=== PATIENT | female | born 1975 | race Hispanic/Latino ===

== ENCOUNTER 2016-11-18 05:39 | Emergency (ER) | payer OTHER ==
[~2016-11-18] VITALS: Ht 154.9 cm; Wt 175.4 kg
[~2016-11-18 05:39] MED LIST: DICY20TA33 PO; HYOS0.1218 SL; LAM100 PO; ONDA8TAB10 PO
[2016-11-18 05:49] VITALS: BP 160/85; RESP 20; O2SAT 95
[2016-11-18] MEDS ORDERED: Ondansetron 2 mg/mL 2 mL Inj ONE (07:22)
[2016-11-18 07:45] LABS: Mean Corpuscular Hemoglobin 24.8 pg (27.0-35.0)
--- NOTE | 2016-11-18 08:16 | ED.REPORT ---
HPI-General Illness Date of Service Nov 18, 2016 ED Provider: Aleksandar Toro MD Nursing Notes Stated Complaint: EAR/THROAT PAIN & VOMITING Chief Complaint: ENT & Mouth Nursing Notes Reviewed: Yes ([employer]une, [employer] not reconciled) Allergies: Coded Allergies: No Known Allergies (Verified Allergy, Unknown, 11/18/16) Scheduled Hyoscyamine SL (Hyoscyamine SL) 0.125 Mg Subl 0.125 MG SL QID lamoTRIgine-Expunged Drug, Do Not Renew! (Lamictal-Expunged Drug, Do Not Renew! ) 100 Mg Tablet 300 MG PO DAILY Scheduled PRN Benzonatate (Tessalon Perle) 100 Mg Capsule 100 MG PO TID PRN PRN For Cough Dicyclomine (Bentyl) 20 Mg Tablet 20 MG PO QID PRN PRN cramps Ondansetron ODT (Ondansetron ODT) 8 Mg Tab.rapdis 8 MG PO QID PRN PRN For Nausea General Time Seen by MD: 08:14 Past Medical History Past Medical History Asthma Seizures Hiatal Hernia Reports: Morbid Obesity Past Surgical History Reports: Cholecystectomy, Inguinal hernia repair Smoking History Former Smoker Social History Alcohol Use: Denies alcohol use Drug Use: Denies drug use Other Social History: Good social support, Local resident Ambulatory Status Independent Physical Exam Vital Signs Vital Signs Date Time Temp Pulse Resp B/P Pulse Ox O2 Delivery O2 Flow Rate FiO2 11/18/16 05:49 37.4 89 20 160/85 95 Room Air Initial VS: Reviewed, Vital signs normal Interpretation & Diagnostics Lab Results Interpretation Result Diagram: 11/18/16 0715 Test 11/18/16 06:45 11/18/16 07:15 Urine Color Yellow (YELLOW) Urine Appearance Hazy (CLEAR,HAZY) Urine pH 6.0 (5.0-8.0) Urine Specific [place] 1.025 (1.003-1.035) Urine Protein Negativemg/dL (NEG,TRACE) Urine Glucose (UA) Negativemg/dL (NEGATIVE) Urine Ketones Negativemg/dL (NEGATIVE) Urine Occult Blood Negative (NEGATIVE) Urine Nitrite Negative (NEGATIVE) Urine Bilirubin Negative (NEGATIVE) Urine Urobilinogen Normalmg/dL (NORMAL) Urine Leukocyte Esterase Negative (NEGATIVE) Urine RBC 0-2/hpf (0-2) Urine WBC 0-5/hpf (0-5) Urine Epithelial Cells Moderate/hpf (NONE-MOD) Urine Crystals None seen (NONE SEEN) Urine Bacteria Moderate/hpf (NONE-FEW) Urine Hyaline Casts None/lpf (NONE) Urine Granular Casts None seen (NONE SEEN) Urine Waxy Casts None seen (NONE SEEN) Urine Red Blood Cell Casts None seen (NONE SEEN) Urine White Blood Cell Casts None seen (NONE SEEN) Urine Mucus None seen (None Seen) Urine Trichomonas None seen (NONE SEEN) Urine Yeast None (NONE SEEN) Urinalysis Comment None Urine Culture Reflexed Indicated Hold Urine Received (Received) White Blood Count 7.0th/mm3 (3.8-10.1) Red Blood Count 4.24mil/mm3 (3.90-5.20) Hemoglobin 10.5g/dL (12.0-15.6) Hematocrit 33.9% (35.0-46.0) Mean Corpuscular Volume 80.0fL (81-100) Mean Corpuscular Hemoglobin 24.8pg (27.0-35.0) Mean Corpuscular Hemoglobin Concent 31.0% (32.0-37.0) Red Cell Distribution Width 16.9% (12.3-15.4) Platelet Count 207bil/L (150-400) Re-Eval/Medical Decision Source of Hx: Old records Discharge & Departure Referrals: Ila Goss MD (PCP) Aleksandar Toro MD Nov 18, 2016 08:16
[2016-11-18 08:38] LABS: APPEARANCE,URINE HAZY (CLEAR,HAZY); COLOR,URINE YELLOW (YELLOW); OCCULT BLOOD,URINE NEGATIVE (NEGATIVE); UROBILINOGEN,URINE NORMAL (NORMAL)
--- NOTE | 2016-11-18 09:03 | ED.REPORT ---
HPI-Facial Injury Date of Service Nov 18, 2016 ED Provider: Vick March DO The patient is a 40 year old female who presents to the emergency department complaining of generalized myalgias that began about 3 days ago. She has also experienced chills, sore throat, ear pain, non-productive cough, runny nose, headache, nausea, and vomiting. She had 2 teeth pulled last week and reports a copper taste in her mouth. She denies abdominal pain, diarrhea,productive cough , dysuria or hematuria. Nursing Notes Stated Complaint: EAR/THROAT PAIN & VOMITING Chief Complaint: ENT & Mouth Nursing Notes Reviewed: Yes Allergies: Coded Allergies: No Known Allergies (Verified Allergy, Unknown, 11/18/16) Scheduled Hyoscyamine SL (Hyoscyamine SL) 0.125 Mg Subl 0.125 MG SL QID lamoTRIgine-Expunged Drug, Do Not Renew! (Lamictal-Expunged Drug, Do Not Renew! ) 100 Mg Tablet 300 MG PO DAILY Scheduled PRN Benzonatate (Tessalon Perle) 100 Mg Capsule 100 MG PO TID PRN PRN For Cough Dicyclomine (Bentyl) 20 Mg Tablet 20 MG PO QID PRN PRN cramps Ondansetron ODT (Ondansetron ODT) 8 Mg Tab.rapdis 8 MG PO QID PRN PRN For Nausea General Time Seen by Provider: 09:06 Chief Complaint Other (myalgias) Hx Obtained From: Patient Arrived By: Walk-in Onset Occurred: 3 days ago Symptom Duration: Since onset Progression Since Onset: Constant, Gradually worsening Quality: Painful Severity: Current: Moderate Severity: Maximum: Moderate Recent Healthcare: No recent hospitalization Similar Sx Previous: No Past Medical History Past Medical History Asthma Seizures Hiatal Hernia Depression Reports: Morbid Obesity Past Surgical History Reports: (x2), Cholecystectomy, Inguinal hernia repair Family History Noncontributory Smoking History Former Smoker Social History Alcohol Use: Denies alcohol use Drug Use: Denies drug use Other Social History: Good social support, Local resident Ambulatory Status Independent Review of Systems Constitutional: Reports: Chills, Fatigue, Malaise, Weakness - generalized Ears / Nose / Throat: Reports: Earache bilateral, Nasal congestion, Sore throat Musculoskeletal: Reports: Myalgia Neurologic: Reports: Headache Complete sys rev & neg: except as marked. Respiratory: Reports: Non-productive cough, Denies: Hemoptysis, Prod cough, bloody, Prod cough, brown, Prod cough, green Cardiovascular: Denies: Chest pain GI: Reports: Nausea, Vomiting, Denies: Abdominal pain, Diarrhea Female: Denies: Dysuria, Hematuria, Urinary frequency, Urinary urgency, Urination decreased, Urination increased Allergy / Immune: Reports: Rhinorrhea Physical Exam Initial Vital Signs Vital Signs (First) Date Time Temp Pulse Resp B/P Pulse Ox O2 Delivery O2 Flow Rate FiO2 11/18/16 05:49 37.4 89 20 160/85 95 Room Air Initial VS: Reviewed Abdomen / GI: Soft, Non-tender, No guarding, No rebound, No distention Lymphatic: No lymphadenopathy Extremities: Vascular intact, Neuro intact, No swelling, No tenderness Skin: Warm, Dry, No cyanosis Psychiatric: Mood/affect normal, Behavior normal, Normal thought content Head / Eyes: Atraumatic, Normocephalic, PERRL, EOMI ENT: Airway patent, Mucous membranes moist, Pharynx NL Multiple missing teeth in the left upper gum line. There is a few empty sockets that appear to be healing well. Neck: Atraumatic, Supple, No meningismus, Full range of motion, No swelling, Non-tender, No midline vertebral tend, No masses Neurologic: Oriented X3, Speech NL, No motor deficits, No sensory deficits, Cerebellar NL General/Constitutional: Awake, Alert, Cooperative Appearance / Presentation: Positive: Obese Respiratory / Chest: Atraumatic, Breath sounds NL, Breath sounds = bilat, No respiratory distress, No rales, No rhonchi, No wheezing, No stridor Cardiovascular: Heart rate NL, Regular rhythm, Heart sounds NL, No murmurs, No rubs, Peripheral circulation NL Interpretation & Diagnostics Interpretation & Diagnostics: Negative for Influenza A or B Lab Results Interpretation Result Diagram: 11/18/16 0715 Test 11/18/16 06:45 11/18/16 07:15 Urine Color Yellow (YELLOW) Urine Appearance Hazy (CLEAR,HAZY) Urine pH 6.0 (5.0-8.0) Urine Specific [place] 1.025 (1.003-1.035) Urine Protein Negativemg/dL (NEG,TRACE) Urine Glucose (UA) Negativemg/dL (NEGATIVE) Urine Ketones Negativemg/dL (NEGATIVE) Urine Occult Blood Negative (NEGATIVE) Urine Nitrite Negative (NEGATIVE) Urine Bilirubin Negative (NEGATIVE) Urine Urobilinogen Normalmg/dL (NORMAL) Urine Leukocyte Esterase Negative (NEGATIVE) Urine RBC 0-2/hpf (0-2) Urine WBC 0-5/hpf (0-5) Urine Epithelial Cells Moderate/hpf (NONE-MOD) Urine Crystals None seen (NONE SEEN) Urine Bacteria Moderate/hpf (NONE-FEW) Urine Hyaline Casts None/lpf (NONE) Urine Granular Casts None seen (NONE SEEN) Urine Waxy Casts None seen (NONE SEEN) Urine Red Blood Cell Casts None seen (NONE SEEN) Urine White Blood Cell Casts None seen (NONE SEEN) Urine Mucus None seen (None Seen) Urine Trichomonas None seen (NONE SEEN) Urine Yeast None (NONE SEEN) Urinalysis Comment None Urine Culture Reflexed Indicated Hold Urine Received (Received) White Blood Count 7.0th/mm3 (3.8-10.1) Red Blood Count 4.24mil/mm3 (3.90-5.20) Hemoglobin 10.5g/dL (12.0-15.6) Hematocrit 33.9% (35.0-46.0) Mean Corpuscular Volume 80.0fL (81-100) Mean Corpuscular Hemoglobin 24.8pg (27.0-35.0) Mean Corpuscular Hemoglobin Concent 31.0% (32.0-37.0) Red Cell Distribution Width 16.9% (12.3-15.4) Platelet Count 207bil/L (150-400) Re-Eval/Medical Decision Med Decision/Clinical Course Med Decision/Clinical Course: Otherwise well-appearing obese female with likely a viral respiratory infection. Return and follow-up precautions given. Source of Hx: Old records, Family Re-Evaluation/Progress : Time of Eval: 09:14 Re-Evaluation/Progress Note: Discussed results, diagnosis, and plan for discharge. All questions were addressed. Counseled Regarding: Diagnosis, Lab results, Need for follow-up, When/why to return to ED Discharge & Departure Impression: Primary Impression: Upper respiratory infection Additional Impression: Nausea & vomiting Disposition: Home Discharge Condition All VS Reviewed: Yes Condition: Stable Additional Instructions: Thank you for entrusting us with your care today. I believe your symptoms are related to a viral infection. You can take Tylenol and/or Ibuprofen as needed for your discomfort. I have written you a prescription for Tessalon Pearls for your cough. You can also buy an over the counter cough medication if it helps. Make sure to rest and drink plenty of fluids. Followup with your regular doctor if your symptoms are not improving in the next few days. Return to the emergency department if you develop fever, severe abdominal pain, uncontrollable vomiting, inability to keep fluids, shortness of breath, or any other new or concerning symptoms. Referrals: Ila Goss MD (PCP) Scribe Attestation Portions of this note were transcribed by Lin Gonzalez. I, Dr. March personally performed the history, physical exam and medical decision-making; I reviewed and confirmed the accuracy of the information in the transcribed note. Signed by: Adrian Dejesus, 11/18/2016 and 0920. copies to: Ila Goss MD, Timothy S DO Nov 18, 2016 09:03 Lin Gonzalez Nov 18, 2016 09:14
[2016-11-18] MEDS ORDERED: 0.9% Sodium Chloride 1,000 ML IV ONE (09:05)
[2016-11-18] MEDS ORDERED: Ondansetron 2 mg/mL 2 mL Inj IVPUSH ONE (09:05)
[2016-11-18] MEDS ORDERED: BENZ-12 PO (09:17)
== END 2016-11-18 09:18 | disposition home or self-care (01) ==
LOC: SED 05:39
DX: J06.9 Acute upper respiratory infection, unspecified (principal); R11.2 Nausea with vomiting, unspecified; J02.9 Acute pharyngitis, unspecified; H92.03 Otalgia, bilateral; R51 Headache; R68.83 Chills (without fever); J45.909 Unspecified asthma, uncomplicated; Z87.891 Personal history of nicotine dependence
CPT/HCPCS: 36415; 81000; 81025; 85027; 87077; 87086; 87088; 87186; 87804; 96361; 96374; 99284; J2405; J7030

== ENCOUNTER 2016-12-15 07:17 | Emergency (ER) | payer OTHER ==
[~2016-12-15] VITALS: Ht 154.9 cm; Wt 180.0 kg
[~2016-12-15 07:17] MED LIST changes: +BENZ-12 PO
[2016-12-15 07:26] VITALS: BP 141/82; PULSE 99; RESP 15; O2SAT 99
--- NOTE | 2016-12-15 07:34 | ED.REPORT ---
HPI- Female Date of Service Dec 15, 2016 ED Provider: Kate Tinoco MD 41 year old morbidly obese female with a history of Bartholin's cyst presents to the ER complaining of four days of worsening vaginal pain secondary to a known Bartholin's cyst. Symptoms have been treated with hot baths and warm compresses daily since onset with no relief. She has had two I&D's for Bartholin 's cysts in the past. Nursing Notes Stated Complaint: CYST IN PUBIC REGION Chief Complaint: Female Abdominal Pain Nursing Notes Reviewed: Yes Allergies: Coded Allergies: No Known Allergies (Verified Allergy, Unknown, 11/18/16) Scheduled Hyoscyamine SL (Hyoscyamine SL) 0.125 Mg Subl 0.125 MG SL QID lamoTRIgine-Expunged Drug, Do Not Renew! (Lamictal-Expunged Drug, Do Not Renew! ) 100 Mg Tablet 300 MG PO DAILY Scheduled PRN Benzonatate (Tessalon Perle) 100 Mg Capsule 100 MG PO TID PRN PRN For Cough Dicyclomine (Bentyl) 20 Mg Tablet 20 MG PO QID PRN PRN cramps Ondansetron ODT (Ondansetron ODT) 8 Mg Tab.rapdis 8 MG PO QID PRN PRN For Nausea General Time Seen by MD: 07:27 Chief Complaint Other (Vaginal Pain) Hx Obtained From: Patient Arrived By: Walk-in Sudden in Onset?: No Onset Occurred: 4 days ago Context of Onset: Other (Bartholin's cyst) Symptom Duration: Since onset Pertinent Negative: Pt denies other symptoms Pertinent Negative: Relieved by nothing Similar Sx Previous: Yes Past Medical History Past Medical History Asthma Seizures Hiatal Hernia Depression Reports: Morbid Obesity Past Surgical History Reports: , Cholecystectomy, Inguinal hernia repair Family History Noncontributory Smoking History Former Smoker Social History Alcohol Use: Denies alcohol use Drug Use: Denies drug use Other Social History: Good social support, Local resident Ambulatory Status Independent Review of Systems Constitutional: Denies: Chills, Fever GI: Denies: Vomiting Female: Denies: Dysuria, Flank pain, Hematuria, Vaginal bleeding - abnl, Vaginal discharge Complete sys rev & neg: except as marked. Physical Exam Initial Vital Signs Vital Signs (First) Date Time Temp Pulse Resp B/P Pulse Ox O2 Delivery O2 Flow Rate FiO2 2/6/17 07:26 36.3 99 15 141/82 99 Room Air Initial VS: Reviewed Head / Eyes: Atraumatic, Normocephalic Neck: Supple, Non-tender, Full range of motion Extremities: Vascular intact, Neuro intact, No swelling, No tenderness Skin: Warm, Dry, No cyanosis Neurologic: Alert, Oriented, Nonfocal Psychiatric: Mood/affect normal, Behavior normal, Normal thought content Female Genitourinary: Balance Truing Inspector present External Genitalia: Positive: Bartholin cyst/abscess L (2x2cm. Partially draining. Left labia minora.), Tenderness present General/Constitutional: Awake, Alert, Well developed, Well nourished Distress / Hydration: Positive: Distress moderate Behavior: Positive: Tearful Appearance / Presentation: Positive: Obese, morbidly Respiratory / Chest: Breath sounds NL, Breath sounds = bilat, No respiratory distress, No rales, No rhonchi, No wheezing Cardiovascular: Heart rate NL, Regular rhythm, Heart sounds NL, Peripheral circulation NL Abdomen: Soft, Non-tender, No guarding, No rebound Procedures Incision & Drainage Abscess I & D Abscess: 8cc of lido with epi uncomplicated placement of word catheter. Inflated with 3cc NS tolerated well Time: 08:06 Procedure Performed by: ED physician Consent / Setup / Site Prep: Informed consent provided, Consent from patient , Time-out performed, Hand hygiene observed, Stand sterile technique, Standard surgical scrub, Sterile drapes applied Location of Abscess: Bartholin's cyst, Left labia minora Skin Preparation Agent: Shurclens Incised Abscess with Scalpel: #11 (draining hole expanded enough to place word cath through) Pus Drained: Medium Post-Procedure / Complications: Condition improved, Tolerated procedure well , Patient stable Re-Eval/Medical Decision Source of Hx: Old records Re-Evaluation/Progress : Time of Eval: 08:06 Re-Evaluation/Progress Note: Completed cyst I&D. Discussed plan to discharge. Patient is amenable to the plan. Return precautions given. All other questions addressed. Counseled Regarding: Diagnosis, Lab results, Need for follow-up, When/why to return to ED Discharge & Departure Impression: Primary Impression: Bartholin's cyst Disposition: Home Discharge Condition All VS Reviewed: Yes Condition: Stable Patient Instructions: Abscess Incision and Drainage (ED) Additional Instructions: I wish you didn't have to deal with these bartholin cysts. You did everything right over the weekend in trying to prevent this from getting worse. Today, I was able to numb the area and place a word catheter that will need to be deflated and removed in a few days. It will be uncomfortable but should be much better than when you go here. If it seems to be getting worse, smells different (like infection), you develop fevers or other concerns for infection you will need to return. I wish you the best! Referrals: Ila Goss MD (PCP) [place] Attestation Portions of this note were transcribed by Mansoor Moore. I, Dr. Tinoco, personally performed the history, physical exam and medical decision-making; I reviewed and confirmed the accuracy of the information in the transcribed note. Signed by: Adrian Duke, 12/15/2016 and 09:05 copies to: Ila Goss MD, Shawna L MD Dec 15, 2016 07:33 MANSOOR MOORE Dec 15, 2016 07:36
[2016-12-15] MEDS ORDERED: oxyCODONE-Acetamin 5-325 mg Tablet PO ONE (07:35)
[2016-12-15] MEDS ORDERED: Lidocaine 1%-Epi 1:100,000 20 mL Inj ONE (07:51)
[2016-12-15 08:34] VITALS: BP 124/82; PULSE 92; O2SAT 94
[2016-12-15 09:01] VITALS: BP 124/82; PULSE 92; RESP 15; O2SAT 94
== END 2016-12-15 09:02 | disposition home or self-care (01) ==
LOC: SED 07:17
DX: N75.0 Cyst of Bartholin's gland (principal); J45.909 Unspecified asthma, uncomplicated; E66.01 Morbid (severe) obesity due to excess calories; Z87.891 Personal history of nicotine dependence; Z68.45 Body mass index [BMI] 70 or greater, adult

== ENCOUNTER 2017-02-25 11:27 | Emergency (ER) | payer OTHER ==
[~2017-02-25] VITALS: Ht 154.9 cm; Wt 178.2 kg
[2017-02-25 11:34] VITALS: PULSE 95; RESP 20; O2SAT 99
[2017-02-25 11:48] VITALS: BP 154/82
[2017-02-25] MEDS ORDERED: Ondansetron 8 mg ODT Tablet ONE (12:02)
[2017-02-25 13:15] LABS: BASOPHILS % (AUTO) 0.3 % (0-3); EOSINOPHILS % (AUTO) 1.4 % (0-5); MONOCYTES % (AUTO) 4.1 % (4-12); Mean Corpuscular Hemoglobin 25.2 pg (27.0-35.0); NEUTROPHILS % (AUTO) 75.3 % (40-74); Platelet Count 226 bil/L (150-400)
[2017-02-25] MEDS ORDERED: HYDROmorphone 1 mg/mL Inj IVPUSH PRN (13:15)
[2017-02-25] MEDS ORDERED: Ondansetron 2 mg/mL 2 mL Inj IVPUSH PRN (13:15)
--- NOTE | 2017-02-25 13:25 | ED.REPORT ---
HPI-Abd Pain F Under 40 Date of Service Feb 25, 2017 ED Provider: Dr. Tolentino A 41 year old female with a history of constipation presents to the ED complaining of abdominal pain onset last night and constipation. Pain was bad this morning, the patient trying to move around to relieve the pain with no success. From [id number], she started feeling "fuzzy" and nausea, then vomited. Nausea and vomiting have improved a little bit since onset. She denies any fever , and reports that she has had a little bit of flatulence. She has been hospitalized at in the past for constipation, where they thought she had a bowel obstruction, however this was never confirmed, and she did not have surgery. She reports chronic back pain onset a few years ago. Nursing Notes Stated Complaint: VOMITING,DIZZINESS, ABDOMINAL PAIN Chief Complaint: Female Abdominal Pain Nursing Notes Reviewed: Yes Allergies: Coded Allergies: No Known Allergies (Verified Allergy, Unknown, 02/26/17) Scheduled Sodium,Potassium,&Mag Sulfates (Suprep Bowel Prep Kit) 354 Ml Soln.recon 1 KIT PO DIRECTED lamoTRIgine-Expunged Drug, Do Not Renew! (Lamictal-Expunged Drug, Do Not Renew! ) 100 Mg Tablet 300 MG PO DAILY General Time Seen by MD: 13:24 Chief Complaint Abdominal pain Hx Obtained From: Patient Sudden in Onset?: No Onset Occurred: Yesterday (last night) Symptom Duration: Since onset Progression since Onset: Constant Severity: Current: Moderate Severity: Maximum: Moderate Recent Healthcare: No recent doctor visit Similar Sx Previous: No Past Medical History Past Medical History Asthma Seizures Hiatal Hernia Depression Hernia Denies: Diabetes mellitus, Hypertension Reports: Depression, Morbid Obesity Past Surgical History hernia Reports: , Cholecystectomy, Inguinal hernia repair Family History Noncontributory Smoking History Former Smoker Social History Works at [employer] Alcohol Use: Denies alcohol use Drug Use: Denies drug use Other Social History: Good social support, Local resident Ambulatory Status Independent Review of Systems Review of Systems Note: Feeling "fuzzy" Constitutional: Reports: Fever GI: Reports: Abdominal pain, Nausea, Vomiting Complete sys rev & neg: except as marked. Physical Exam Initial Vital Signs Vital Signs (First) Date Time Temp Pulse Resp B/P Pulse Ox O2 Delivery O2 Flow Rate FiO2 02/25/17 11:34 36.2 95 20 99 Room Air 02/25/17 11:48 154/82 Initial VS: Reviewed General/Constitutional: Awake, Alert Respiratory / Chest: Atraumatic, Breath sounds NL, Breath sounds = bilat, No respiratory distress, No rales, No rhonchi, No wheezing Cardiovascular: Heart rate NL, Regular rhythm, Heart sounds NL, No gallop, No murmurs, No rubs Bowel Sounds / Distention: Positive: Bowel sounds hypoactive (Decreased bowel sounds) Mild abdominal pain. Back: Atraumatic, Full range of motion Head / Eyes: Atraumatic, Normocephalic, PERRL, EOMI ENT: Atraumatic, Mucous membranes moist Skin: Warm, Dry Neurologic: Oriented X3, Speech NL Interpretation & Diagnostics Lab Results Interpretation Result Diagram: 02/25/17 1250 02/25/17 1250 Test 02/25/17 12:50 02/25/17 13:00 02/25/17 13:17 White Blood Count 12.3th/mm3 (3.8-10.1) Red Blood Count 5.35mil/mm3 (3.90-5.20) Hemoglobin 13.5g/dL (12.0-15.6) Hematocrit 42.8% (35.0-46.0) Mean Corpuscular Volume 80.0fL (81-100) Mean Corpuscular Hemoglobin 25.2pg (27.0-35.0) Mean Corpuscular Hemoglobin Concent 31.5% (32.0-37.0) Red Cell Distribution Width 17.4% (12.3-15.4) Platelet Count 226bil/L (150-400) Neutrophils (%) (Auto) 75.3% (40-74) Lymphocytes (%) (Auto) 18.1% (14-46) Monocytes (%) (Auto) 4.1% (4-12) Eosinophils (%) (Auto) 1.4% (0-5) Basophils (%) (Auto) 0.3% (0-3) Sodium Level 139mEq/L (134-144) Potassium Level 4.1mEq/L (3.5-5.2) Chloride Level 98mEq/L (97-108) Carbon Dioxide Level 24mmol/L (18-29) Blood Urea Nitrogen 10mg/dL (6-20) Creatinine 0.59mg/dL (0.57-1.00) Estimat Glomerular Filtration Rate 163mL/min (>59) Glucose Level 119mg/dL (60-99) Calcium Level 10.1mg/dL (8.5-10.1) Magnesium Level 2.2mg/dL (1.6-2.6) Total Bilirubin 0.5mg/dL (0.0-1.2) Aspartate Amino Transf (AST/SGOT) 18U/L (0-50) Alanine Aminotransferase (ALT/SGPT) 20U/L (0-32) Alkaline Phosphatase 74U/L (25-150) Total Protein 8.0g/dL (6.4-8.4) Albumin 4.6g/dL (3.4-5.0) Lipase 11U/L (13-60) Hold Urine Received (Received) Urine Color Dark yellow (YELLOW) Urine Appearance Slightly cloudy Urine pH 5.0 (5.0-8.0) Urine Specific [place] 1.030 (1.003-1.035) Urine Protein 30mg/dL (NEG,TRACE) Urine Glucose (UA) Negativemg/dL (NEGATIVE) Urine Ketones 15mg/dL (NEGATIVE) Urine Occult Blood Trace (NEGATIVE) Urine Nitrite Negative (NEGATIVE) Urine Bilirubin Negative (NEGATIVE) Urine Urobilinogen Normalmg/dL (NORMAL) Urine Leukocyte Esterase Small (NEGATIVE) Urine RBC 0-2/hpf (0-2) Urine WBC 6-10/hpf (0-5) Urine Epithelial Cells Occasional/hpf (NONE-MOD) Urine Crystals None seen (NONE SEEN) Urine Bacteria Moderate/hpf (NONE-FEW) Urine Hyaline Casts None/lpf (NONE) Urine Granular Casts None seen (NONE SEEN) Urine Waxy Casts None seen (NONE SEEN) Urine Red Blood Cell Casts None seen (NONE SEEN) Urine White Blood Cell Casts None seen (NONE SEEN) Urine Mucus Present (None Seen) Urine Trichomonas Present (NONE SEEN) Urine Yeast None (NONE SEEN) Urinalysis Comment None Urine Culture Reflexed Indicated X-Ray Abdominal Interpretation IMPRESSION: 1. Nonspecific bowel gas pattern. 2. Hepatomegaly. Dictated by: Audrey Bonilla M.D. on 02/25/2017 at 14:00 Approved by: Audrey Bonilla M.D. on 02/25/2017 at 14:02 Interpretation / Wet Read by: Interpret - Radiologist Re-Eval/Medical Decision Source of Hx: Old records Re-Evaluation/Progress : Time of Eval: 15:00 Patient Status: Condition improved Re-Evaluation/Progress Note: Rechecked patient who is feeling better and wants to go home. Explained test results, diagnosis, and plan for discharge. Patient understands and agrees with the plan. All questions addressed. Counseled Regarding: Diagnosis, Lab results, Need for follow-up, When/why to return to ED Discharge & Departure Primary Impression: Nausea & vomiting Additional Impressions: Abdominal Pain Generalized Constipation Disposition: Home Discharge Condition All VS Reviewed: Yes Condition: Stable Patient Instructions: Acute Abdominal Pain (ED) Additional Instructions: No dangerous cause for your abdominal pain is discovered. Your suspicion that constipation is playing a significant role is likely. I recommend magnesium citrate one full bottle this evening. If that is not effective and does not solve the problem, I recommend Suprep tomorrow. This is a prescription item that I have sent electronically to [facility] in [place]. Return to the emergency for high fever, persistent vomiting or severe pain not controlled with IV proper Tylenol. Referrals: Ila Goss MD (PCP) Scribe Attestation Portions of this note were transcribed by Sonido Angel. I, Dr. Tolentino personally performed the history, physical exam and medical decision-making; I reviewed and confirmed the accuracy of the information in the transcribed note. Signed by: Adrian Ram, 02/25/2017,5995. copies to: Ila Goss MD, Kirk H MD Feb 25, 2017 13:25 Sonido Angel Feb 25, 2017 13:30 Abraham Tolentino MD Feb 25, 2017 13:25 Sonido Angel Feb 25, 2017 13:30
[2017-02-25 13:36] LABS: Magnesium 2.2 mg/dL (1.6-2.6)
--- NOTE | 2017-02-25 14:04 | DRSVH ---
PROCEDURE: X-RAY ACUTE ABDOMINAL SERIES ([id number]) INDICATIONS: abd pAIN, hX OBSTRUCTION TECHNIQUE: One view chest and two views of the abdomen were acquired. COMPARISON: [facility], CT, ABD/PELVIS W/CON (PNL), 08/09/2015, 18:26. [facility], CR, ABD ACUTE SERIES, 10/30/2011, 19:42. FINDINGS: Surgical changes and devices: Cholecystectomy clips are noted. Chest: Lungs are clear. Heart size is normal. No pleural effusions. No pneumoperitoneum. Abdomen: There is scattered colonic gas and paucity of small bowel gas No suspicious calcifications . Liver is enlarged. Bones: No suspicious bony lesions. IMPRESSION: 1. Nonspecific bowel gas pattern. 2. Hepatomegaly. Dictated by: Audrey Bonilla M.D. on 02/25/2017 at 14:00 Approved by: Audrey Bonilla M.D. on 02/25/2017 at 14:02
[2017-02-25 14:06] VITALS: BP 130/68; PULSE 82; O2SAT 92
[2017-02-25 14:16] LABS: APPEARANCE,URINE SLIGHTLY CLOUDY (CLEAR,HAZY); COLOR,URINE DARK YELLOW (YELLOW); OCCULT BLOOD,URINE TRACE (NEGATIVE)
[2017-02-25 14:19] LABS: UROBILINOGEN,URINE NORMAL (NORMAL)
[2017-02-25] MEDS ORDERED: SODI354S PO (15:03)
[2017-02-25 16:05] VITALS: BP 136/55; PULSE 78; O2SAT 97
[2017-02-25 16:20] VITALS: BP 136/55; PULSE 78; RESP 20; O2SAT 97
[2017-02-26] MEDS ORDERED: LAMO100T2 PO (10:10)
== END 2017-02-25 16:21 | disposition home or self-care (01) ==
LOC: SED 11:27
DX: R11.2 Nausea with vomiting, unspecified (principal); R10.84 Generalized abdominal pain; K59.00 Constipation, unspecified; J45.909 Unspecified asthma, uncomplicated; Z87.891 Personal history of nicotine dependence
CPT/HCPCS: 36415; 74022; 80053; 81000; 83690; 83735; 85025; 87086; 87088; 96374; 96375; 99285; J1170; J1885; J2405

== ENCOUNTER 2017-02-26 03:08 | Inpatient (IN) | payer OTHER ==
[~2017-02-26] VITALS: Ht 154.9 cm; Wt 175.6 kg
[~2017-02-26 03:08] MED LIST changes: -BENZ-12 PO; -DICY20TA33 PO; -HYOS0.1218 SL; -ONDA8TAB10 PO; +SODI354S PO
[2017-02-26 03:14] VITALS: BP 163/105; PULSE 96; RESP 16; O2SAT 96
--- NOTE | 2017-02-26 03:42 | ED.REPORT ---
HPI-Abd Pain F Under 42 Date of Service Feb 26, 2017 ED Provider: Clive Russell MD 41 year old female with a history of constipation, cholecystectomy, and hernia repair presents to the ER complaining of three days of constipation. Associated symptom of vomiting onset today. Patient was seen here in the department last night for similar and sent home with magnesium citrate which provided no relief of symptoms. She was hospitalized at in the past for constipation, thought to be from bowel obstruction. This was never confirmed and the patient did not receive any surgery. Nursing Notes Stated Complaint: VOMITING,STOMACH PAIN,DIARRHEA Chief Complaint: Female Abdominal Pain Nursing Notes Reviewed: Yes Allergies: Coded Allergies: No Known Allergies (Verified Allergy, Unknown, 02/26/17) Scheduled Sodium,Potassium,&Mag Sulfates (Suprep Bowel Prep Kit) 354 Ml Soln.recon 1 KIT PO DIRECTED lamoTRIgine-Expunged Drug, Do Not Renew! (Lamictal-Expunged Drug, Do Not Renew! ) 100 Mg Tablet 300 MG PO DAILY General Time Seen by MD: 03:42 Chief Complaint Constipation Hx Obtained From: Patient Arrived By: Walk-in Sudden in Onset?: No Onset Occurred: 3 days ago Symptom Duration: Since onset Associated with: Reports: Nausea, Vomiting Pertinent Negative: Pt denies other symptoms Similar Sx Previous: Yes Past Medical History Past Medical History Asthma Seizures Hiatal Hernia Depression Hernia Was hospitalized at in the past for constipation, thought to be from bowel obstruction. This was never confirmed and the patient did not recieve any surgery. Reports: Depression, Morbid Obesity Past Surgical History hernia surgery. Reports: , Cholecystectomy, Inguinal hernia repair Family History Noncontributory Smoking History Former Smoker Social History Works at [employer] Alcohol Use: Denies alcohol use Drug Use: Denies drug use Other Social History: Good social support, Local resident Ambulatory Status Independent Review of Systems Constitutional: Denies: Chills, Fever Respiratory: Denies: Non-productive cough, Shortness of breath GI: Reports: Constipation, Nausea, Vomiting, Denies: Abdominal pain, Diarrhea Complete sys rev & neg: except as marked. Physical Exam Initial Vital Signs Vital Signs (First) Date Time Temp Pulse Resp B/P Pulse Ox O2 Delivery O2 Flow Rate FiO2 02/26/17 03:14 36.0 96 16 163/105 96 Room Air Initial VS: Reviewed Head / Eyes: Atraumatic, Normocephalic Neck: Supple, Non-tender, Full range of motion Extremities: Vascular intact, Neuro intact, No swelling, No tenderness Skin: Warm, Dry, No cyanosis Neurologic: Alert, Oriented, Nonfocal General/Constitutional: Awake, Alert, Well developed, Well nourished Appearance / Presentation: Positive: Obese, morbidly Respiratory / Chest: Breath sounds NL, Breath sounds = bilat, No respiratory distress, No rales, No rhonchi, No wheezing Cardiovascular: Heart rate NL, Regular rhythm, Heart sounds NL, Peripheral circulation NL Abdomen: Soft, No guarding, No rebound, No distention Tenderness/Guarding/Rebound: Positive: Tender diffuse Bowel Sounds / Distention: Positive: Bowel sounds hypoactive Back: Inspection NL, Non-tender, No CVA tenderness Interpretation & Diagnostics Lab Results Interpretation Result Diagram: 02/26/17 0406 02/26/17 0406 Test 02/26/17 04:06 White Blood Count 11.0th/mm3 (3.8-10.1) Red Blood Count 4.71mil/mm3 (3.90-5.20) Hemoglobin 11.8g/dL (12.0-15.6) Hematocrit 38.5% (35.0-46.0) Mean Corpuscular Volume 81.7fL (81-100) Mean Corpuscular Hemoglobin 25.1pg (27.0-35.0) Mean Corpuscular Hemoglobin Concent 30.6% (32.0-37.0) Red Cell Distribution Width 17.2% (12.3-15.4) Platelet Count 307bil/L (150-400) Neutrophils (%) (Auto) 71.1% (40-74) Lymphocytes (%) (Auto) 21.1% (14-46) Monocytes (%) (Auto) 6.1% (4-12) Eosinophils (%) (Auto) 1.0% (0-5) Basophils (%) (Auto) 0.4% (0-3) Sodium Level 140mEq/L (134-144) Potassium Level 3.7mEq/L (3.5-5.2) Chloride Level 100mEq/L (97-108) Carbon Dioxide Level 26mmol/L (18-29) Blood Urea Nitrogen 9mg/dL (6-20) Creatinine 0.58mg/dL (0.57-1.00) Estimat Glomerular Filtration Rate 166mL/min (>59) Glucose Level 126mg/dL (60-99) Calcium Level 9.4mg/dL (8.5-10.1) Total Bilirubin 0.7mg/dL (0.0-1.2) Aspartate Amino Transf (AST/SGOT) 13U/L (0-50) Alanine Aminotransferase (ALT/SGPT) 16U/L (0-32) Alkaline Phosphatase 62U/L (25-150) Total Protein 6.8g/dL (6.4-8.4) Albumin 3.8g/dL (3.4-5.0) Re-Eval/Medical Decision Med Decision/Clinical Course Med Decision/Clinical Course: 41-year-old chronic constipation presents again with constipation, now complicated by nausea and vomiting, rendering her unable to keep down her cathartics. She has been rehydrated here and with IV ondansetron, has been able to drink magnesium citrate. She has had a small amount of stool produced after two enemas. She continues to complain of nausea and is not yet ready for discharge at this point. She has a GoLYTELY prep prescribed but is not use that at home yet. She is signed out at [address] Tolentino for further evaluation and management. Discharge & Departure Shift Change Sign-Out Patient Care Transferred: Yes Discussed Complaint(s): Yes Primary Impression: Constipation Additional Impression: Nausea & vomiting Discharge Condition All VS Reviewed: Yes Condition: Stable Referrals: Ila Goss MD (PCP) Care Transferred to: Dr. Tolentino Care Transferred at: 06:00 Adrian Attestation Portions of this note were transcribed by Mansoor Ulloa. I, Dr. Russell, personally performed the history, physical exam and medical decision-making; I reviewed and confirmed the accuracy of the information in the transcribed note. Signed by: Adrian Duke, 02/26/2017 at 05:55 copies to: Ila Goss MD, Christopher W MD Feb 26, 2017 03:42 MANSOOR ULLOA Feb 26, 2017 03:50
[2017-02-26] MEDS ORDERED: 0.9% Sodium Chloride 1,000 ML IV ONE ×2 (03:48→04:45)
[2017-02-26] MEDS ORDERED: Ondansetron 2 mg/mL 2 mL Inj IVPUSH ONE ×2 (03:50→05:15)
[2017-02-26 04:12] LABS: BASOPHILS % (AUTO) 0.4 % (0-3); MONOCYTES % (AUTO) 6.1 % (4-12); Mean Corpuscular Hemoglobin 25.1 pg (27.0-35.0); Mean Corpuscular Volume 81.7 fL (81-100); NEUTROPHILS % (AUTO) 71.1 % (40-74); Platelet Count 307 bil/L (150-400)
[2017-02-26 06:34] VITALS: BP 138/85; PULSE 83; RESP 16; O2SAT 99
[2017-02-26] MEDS ORDERED: MetoCLOpramide 5 mg/mL 2 mL Inj ONE (07:10)
[2017-02-26] MEDS ORDERED: HYDROmorphone 1 mg/mL Inj IVPUSH ONE (07:25)
--- NOTE | 2017-02-26 08:32 | DRSVH ---
PROCEDURE: X-RAY ACUTE ABDOMINAL SERIES ([id number]) INDICATIONS: pain/ nausea TECHNIQUE: One view chest and two views of the abdomen were acquired. COMPARISON: [facility], CR, XR ABD ACUTE SERIES 3VW, 02/25/2017, 13:27. FINDINGS: Surgical changes and devices: None. Chest: There are a few linear bibasilar opacities likely representing atelectasis. Heart size is no rmal. No pleural effusions. No pneumoperitoneum. Abdomen: There is a paucity of gas in the bowel. There are scattered air-fluid levels in the abdome n likely within small bowel. No suspicious calcifications. Bones: No suspicious bony lesions. IMPRESSION: 1. Nonspecific bowel gas pattern with a few scattered air-fluid levels but paucity of intraluminal g as. The differential includes bowel obstruction as well as gastroenteritis or an ileus. Further emigdio luation may be obtained with CT if clinically indicated. Dictated by: Jac Mei M.D. on 02/26/2017 at 8:29 Approved by: Jac Mei M.D. on 02/26/2017 at 8:31
--- NOTE | 2017-02-26 09:45 | DRSVH ---
PROCEDURE: CT ABDOMEN AND PELVIS WITH CONTRAST ([id number]) INDICATIONS: Abdominal pain, vomiting and diarrhea. TECHNIQUE: After the administration of intravenous contrast, 5 mm thick sections acquired from the diaphragm to the symphysis. 5 mm coronal and sagittal reformats were acquired. For radiation dose reduction, the following was used: automated exposure control, adjustment of mA and/or kV according to patient siz e. COMPARISON: [facility], CT, ABD/PELVIS W/CON (PNL), 10/14/2014, 13:47. [facility], [place], ABD/PELVIS W/CON (PNL), 10/11/2014, 11:26. [facility], CR, XR ABD ACUTE SE TIFFANY 3VW, 02/25/2017, 13:27. [facility], CR, XR ABD ACUTE SERIES 3VW, 02/26/2017, 7:35. [facility], CT, ABD/PELVIS W/CON (PNL), 08/09/2015, 18:26. [facility], CT, A BD/PELVIS W/CON (PNL), 07/28/2012, 9:46. FINDINGS: Image quality: Excellent. ABDOMEN: Lung bases: Lung bases are clear. Heart size is normal. There is a small hiatal hernia. Solid organs: Liver is elongated with a Britton's lobe. Spleen is enlarged. Spleen measures 14.7 cm i n length. There are numerous small hypodense nodules in spleen Gallbladder is surgically absent. Gael iary system is non dilated. Pancreas enhances normally. No adrenal nodules. Kidneys demonstrate no rmal size and enhancement, without hydronephrosis. Peritoneum and bowel: Proximal small bowel loops are fluid-filled and distended measuring up to 4.4 cm, demonstrating normal thickness. The distal ileum and colon are small in caliber. There is transit ion point in small bowel caliber within the large ventral hernia sac. No free fluid or air. Nodes and vessels: No retroperitoneal or mesenteric adenopathy by size criteria. Aorta and inferior vena cava are normal in size. Miscellaneous: There is a large ventral hernia containing loops of small intestine and small bowel me sentery. There is increased stranding within the hernia. PELVIS: Genitourinary: Bladder wall thickness is normal. Miscellaneous: No inguinal hernias or adenopathy. Bones: No suspicious bony lesions. No vertebral body compression fractures. IMPRESSION: 1. Distal small bowel obstruction. The transitional point is within the large ventral hernia. 2. Large ventral hernia containing small bowel and mesentery. There is increased stranding within the hernia. 3. Splenomegaly. There are numerous small hypodense nodules in spleen. Differential diagnosis include s inflammatory conditions such as sarcoidosis, but infiltrative process such as Gaucher's disease, an d neoplasm such as leukemia or lymphoma. Recommend clinical correlation and followup. Dictated by: Audrey Bonilla M.D. on 02/26/2017 at 9:15 Approved by: Audrey Bonilla M.D. on 02/26/2017 at 9:43
[2017-02-26] MEDS: HYDROmorphone 1 mg/mL Inj IVPUSH PRN ×6 (09:57→21:08)
[2017-02-26] MEDS ORDERED: LAMO100T2 PO (10:10)
[2017-02-26] MEDS ORDERED: Benzoc-Butamben-Tetraca Spray 20 Gm Spray TOPICAL ONE (10:15)
[2017-02-26] MEDS ORDERED: Polyethylene Glycol (PEG) 17 Gm Powder PO PRN (11:55)
[2017-02-26] MEDS ORDERED: Alum-Mag Hydrox-Simeth 30 mL Suspension PO PRN (11:55)
[2017-02-26 12:49] VITALS: BP 109/70; PULSE 75; O2SAT 98
[2017-02-26] MEDS: Heparin 5,000 Unit/mL Inj SUBQ SCH ×2 (13:00→20:59)
[2017-02-26 13:08] VITALS: BP 141/72; PULSE 90; RESP 18; O2SAT 96
[2017-02-26] MEDS: Ondansetron 2 mg/mL 2 mL Inj IVPUSH PRN ×3 (13:14→22:33)
[2017-02-26] MEDS: 0.9% Sodium Chloride 1,000 ML IV SCH ×2 (14:23→21:11)
--- NOTE | 2017-02-26 14:41 | NUR ---
admitted to room 1030 from ER 41 yr old female with SBO, still very nauseated, vomited small amt green foul smelling, NG to suction. active BTs, some abd cramping
[2017-02-26] MEDS ORDERED: Benzocaine-Menthol Lozenge 2/Pkg PO PRN (17:15)
[2017-02-26 19:06] VITALS: BP 135/83; PULSE 89; RESP 18; O2SAT 92
[2017-02-26 20:48] VITALS: BP 123/82; PULSE 78; RESP 18; O2SAT 92
--- NOTE | 2017-02-26 22:33 | PCM.ADCARE ---
Advance Care Planning Note Purpose of Encounter: Discuss code status Parties in Attendance: Patient and Dr. West Decisional Capacity: Good Subjective: Karon is wanting all resuscitation measures Objective: Patient is young, 41 and healthy other than morbid obesity. 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 Care Plan Documenation: Documented in H&P Kira West DO Feb 26, 2017 22:33
--- NOTE | 2017-02-26 22:41 | PCM.HPMED ---
Subjective Date of Service Feb 26, 2017 Primary Provider: Admitting Physician: Primary Care Physician: Ila Goss MD Attending Physician: Admit Status: From the Emergency Department Chief Complaint: Abdominal pain History of Present Illness: 41-year-old morbidly obese [place] female is visiting. Abdominal pain ongoing for daily as onset was 3 days ago. She was seen in the ED last night for similar symptoms and was sent home on mag citrate and GoLYTELY when necessary. She said mag citrate did not give her any relief she has not tried the GoLYTELY. She states that she was seen at [facility] for in the past for constipation. She did not have abdominal pain this bad ever before. She feels dehydrated, she denies urine symptoms. She has nausea vomiting diarrhea, lower abdominal pain, dehydration. She denies fevers or chills. Past surgical history includes hernia repair in the lower abdomen by 2 and cholecystectomy. In the ER CT of the abdomen showed distal SBO very large ventral hernia with transition point at the at the large ventral hernia. Increased stranding around hernia noted also splenomegaly. White count is 11 blood pressure 163/105 glucose is 126 otherwise her labs were unremarkable patient is given IV fluids and Zofran she had some small stool after 2 enemas. Surgery was consulted Dr. Garrido has reviewed the case will see the patient. She agrees to conservatively manage patient's obstruction as long as she does not be required surgical repair. Patient is currently appearing comfortable in the room denies pain, states that her medications are controlling her pain well. Patient is admitted to the [place] team with general surgery consult being for small bolus obstruction likely because of an incarcerated hernia. Review of Systems: I will review of systems negative except as stated above Allergies Coded Allergies: No Known Allergies (Verified Allergy, Unknown, 02/26/17) PMH Significant for asthma, constipation, had an hernia, depression/bipolar, morbid obesity Surgical History Pertinent for cholecystectomy, hernia repair in the lower abdomen 6-7 years ago , 2 last 1 was 15 years ago Family History Mother had Parkinson's, depression, COPD Dad had diabetes heart disease, of heart attack Social History Occupation: patient works at a [employer] Hx Alcohol Use: No Hx Substance Use: No Hx Tobacco Use: No Smoking Status: Former Smoker Living Arrangement: with Family Exam Vital Signs Vital Sign - Last Date Time Temp Pulse Resp B/P Pulse Ox O2 Delivery O2 Flow Rate FiO2 02/26/17 06:34 36.7 83 16 138/85 99 Room Air Intake and Output 02/25/17 02/25/17 02/26/17 Cumulative From/Thru 15:00 23:00 07:00 02/26/17 03:14 - 02/26/17 05:20 Intake Total 2000 ml 2000 ml Balance 2000 ml 2000 ml Intake IV Total 2000 ml 2000 ml Exam General: NAD, laying in bed, some what uncomfortable HEENT: NCAT Eyes: [place] conjunctivae. No ptosis, PERRL Neck: No masses, trachea midline, no thyromegaly Lungs: CTA with normal respiratory effort, no crackles or wheezes CV: RRR, no murmurs/rubs/gallops, normal PMI GI: Soft, with no hepatosplenomegaly. Lower abdominal bulge can be seen. Tenderness over the bulge and also in the left lower quadrant MSK: Normal gait and station, no digital cyanosis Skin: Warm and dry. No rash, lesions or ulcers Psych: A&O X3, with approprate affect Lab and Diagnostics Result Diagram: 02/26/17 0406 02/26/17 040 Assessment & Plan Assessment and plan Assessment #1 small bowel obstruction and likely incarcerated hernia: Present on admission -- Continue diet -- IV fluids running at 1 25 mL/h -- Zofran for p nausea and see control -- Morphine when necessary for pain control -- Protonix IV 40 mg every 24 for GI prophylaxis -- Consult general surgery -- We will consider transfer if she requires a surgery and conservative management fails -- Continue NG tube -- Ketorolac when necessary Assessment #2 chronic bipolar -- Hold by mouth medication at this time Code status: Full code Advanced decision maker: Has been Maycee Diet nothing by mouth Disposition: To to 3 days to home if symptoms are brought under control, her transfer to outside facility for abdominal surgery due to morbid obesity Pain Evaluation: Adequate Pain Control GI Prophylaxis: Proton Pump Inhibitor VTE Prophylaxis: Sub-Q Heparin (Unfractionated) Resuscitation Status: CPR: Attempt Resuscitation Kira West DO Feb 26, 2017 11:54
--- NOTE | 2017-02-26 23:00 | NUR ---
Pain/Nausea Pt c/o of pain and received Dilaudid. During Administration of Dilaudid pt c/o nausea and was given Zofran. Pt later c/o headache and Nausea. Pt given Toradol and Zofran. Both helpful per pt. care ongoing.
[2017-02-27 00:44] VITALS: BP 118/73; PULSE 78; RESP 18; O2SAT 93
--- NOTE | 2017-02-27 00:46 | PCM.CONSUR ---
Subjective History of Present Illness Chief complaint: This is a 41-year-old female BMI 73 who was admitted to the ER last night at around 2:30am due to stomach pain, vomiting, and nausea. History of present illness: This 41-year-old female BMI 73 was admitted to the ER last night with symptoms of bowel obstruction. She had not had a bowel movement for the last four day and complained of symptoms of stomach pain, nausea, and vomiting. She currently denies feeling feverish, chest pain, and shortness of breath. She also denies blood in her stools or diarrhea prior to 4 days ago, when she had her last bowel movement. Yesterday, she said she was also admitted to the ER for similar symptoms. She received Suprep 354mL solution and was discharged the same day. A few years ago , she says that she was hospitalized for similar symptoms, but she does not have clear recollection of that episode, including what was done for her to help her symptoms. This morning, after an enema and two bottles of magnesium, she said that she was able to have a small bowel movement, but her abdominal pain and nausea remain. She returned to the ED and an NG tube was placed. Abdominal and pelvic CT with contrast on 02/26/2017: report shows distal small bowel obstruction within the ventral hernia (which also includes mesentery and increased fat stranding); also shows splenomegaly with numerous hypodense nodules Abdominal X-ray on 02/26/2017: shows nonspecific bowel gas pattern with few air- fluid levels Past medical history: depression, asthma as a child Past surgical history: 1. Laparoscopic repair of ventral incisional hernia by Abhijeet Chakraborty MD 2. 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[place], [place]; she denies smoking and alcohol use Allergy Allergies: Coded Allergies: No Known Allergies (Verified Allergy, Unknown, 02/26/17) Medications Lamotrigine (Lamotrigine) 100 Mg Tablet 300 MG PO DAILY (Reported) Last Taken: Unknown Dose on 02/25/17 0500 Discontinued Medications Benzonatate (Tessalon Perle) 100 Mg Capsule 100 MG PO TID PRN PRN For Cough Prescribed by: ISAIAH HOUGH DO Dicyclomine (Bentyl) 20 Mg Tablet 20 MG PO QID PRN PRN cramps Prescribed by: JASWINDER KRAMER MD Hyoscyamine SL (Hyoscyamine SL) 0.125 Mg Subl 0.125 MG SL QID Prescribed by: SURJIT KELLER MD Ondansetron ODT (Ondansetron ODT) 8 Mg Tab.rapdis 8 MG PO QID PRN PRN For Nausea Prescribed by: JASWINDER KRAMER MD Sodium,Potassium,&Mag Sulfates (Suprep Bowel Prep Kit) 354 Ml Soln.recon 1 KIT PO DIRECTED Prescribed by: SURJIT KELLER MD lamoTRIgine-Expunged Drug, Do Not Renew! (Lamictal-Expunged Drug, Do Not Renew! ) 100 Mg Tablet 300 MG PO DAILY (Reported) Past Surgical History Surgeries: Yes ( x 2, Cholecystectomy HERNIA REPAIR) Patient/Family Past Surgical: Positive for:: Accept Blood Products?, Denies:: Anesthesia Reactions, Blood Transfusions Social History Occupation: patient works at a [employer] Hx Alcohol Use: No Hx Substance Use: No Hx Tobacco Use: No PMH HEENT History History of ENT Problems?: No HEENT History: Positive for:: Sinus Problem (sinus congestion in am) Denies:: Cataracts Difficult Intubation Dysphagia Glaucoma Cardiovascular History History of Heart Problems?: No Cardiovascular History: Denies:: Cardiac Surgery Chest Pain Congestive Heart Failure Edema Heart Murmur Hypertension Irregular Heartbeat Pacemaker Thrombophlebitis Respiratory History of Respiratory Problem: No Respiratory History: Positive for:: Asthma (childhood asthma) Pneumonia (as a child) Denies:: COPD Chest Surgery Dyspnea Emphysema Hemoptysis Tuberculosis Neurological History Hx Neurologic Problems?: Yes Neurological History: Positive for:: Seizures Denies:: Alzheimer's Disease CVA Dementia Dizziness Headaches Parkinson's Disease Gastrointestinal History HX of GI Problems?: Yes Gastrointestinal History: Denies:: Diverticulitis Gastroesphageal Reflux Gastrointestinal Bleeding Heartburn Hepatitis Hiatal Hernia (ventral hernia) Rectal Bleeding Genitourinary History Hx of Gu Problems?: No Genitourinary History: Denies: HX of Hemodialysis Kidney Stones Urinary Tract Infection Female/Male History Reproductive History Female: Denies: Currently ? Endometriosis Pelvic Inflammatory DX Problems with Breasts? Skin History Skin History: Denies:: History Skin Disorders? Musculoskeletal History Hx Musculoskeletal Problems?: No Musculoskeletal History: Denies:: Back Injury Joint Replacement Musculoskeletal Trauma Psycho Social History Hx of Psycho/Social Problems?: Yes Psycho Social History: Positive for:: Hx Depression Other History Hx Any Other Health Problems?: No Other History: Denies:: Cancer Thyroid Disease Diabetes: No Social History Hx Alcohol Use: NoHx Substance Use: NoHx Tobacco Use: No Smoking Status: Former Smoker Living Arrangement: with Family Objective Exam Vital Signs & I/O Vital Sign- Last 8 Hours Date Time Temp Pulse Resp B/P Pulse Ox O2 Delivery O2 Flow Rate FiO2 02/26/17 20:48 36.7 78 18 123/82 92 Room Air 02/26/17 19:06 36.7 89 18 135/83 92 Room Air Intake and Output- Last 8 Hour 02/27/17 Cumulative From/Thru 07:00 02/26/17 03:14 - 02/26/17 18:57 Intake Total 2200 ml Output Total 450 ml Balance 1750 ml Intake Oral 200 ml IV Total 2000 ml Output Urine Total 200 ml Emesis 250 ml # Voids 1 Lab & Micro Results Laboratory Tests Test 02/26/17 04:06 White Blood Count 11.0th/mm3 (3.8-10.1) Red Blood Count 4.71mil/mm3 (3.90-5.20) Hemoglobin 11.8g/dL (12.0-15.6) Hematocrit 38.5% (35.0-46.0) Mean Corpuscular Volume 81.7fL (81-100) Mean Corpuscular Hemoglobin 25.1pg (27.0-35.0) Mean Corpuscular Hemoglobin Concent 30.6% (32.0-37.0) Red Cell Distribution Width 17.2% (12.3-15.4) Platelet Count 307bil/L (150-400) Neutrophils (%) (Auto) 71.1% (40-74) Lymphocytes (%) (Auto) 21.1% (14-46) Monocytes (%) (Auto) 6.1% (4-12) Eosinophils (%) (Auto) 1.0% (0-5) Basophils (%) (Auto) 0.4% (0-3) Sodium Level 140mEq/L (134-144) Potassium Level 3.7mEq/L (3.5-5.2) Chloride Level 100mEq/L (97-108) Carbon Dioxide Level 26mmol/L (18-29) Blood Urea Nitrogen 9mg/dL (6-20) Creatinine 0.58mg/dL (0.57-1.00) Estimat Glomerular Filtration Rate 166mL/min (>59) Glucose Level 126mg/dL (60-99) Calcium Level 9.4mg/dL (8.5-10.1) Total Bilirubin 0.7mg/dL (0.0-1.2) Aspartate Amino Transf (AST/SGOT) 13U/L (0-50) Alanine Aminotransferase (ALT/SGPT) 16U/L (0-32) Alkaline Phosphatase 62U/L (25-150) Total Protein 6.8g/dL (6.4-8.4) Albumin 3.8g/dL (3.4-5.0) Result Diagram: 02/26/1740502/26/17405 Review of Systems: Constitutional: Negative, except as otherwise mentioned in the history above. Ophthalmologic: Negative, except as otherwise mentioned in the history above. Cardiovascular: Negative, except as otherwise mentioned in the history above. Respiratory: Negative, except as otherwise mentioned in the history above. Gastrointestinal: Negative, except as otherwise mentioned in the history above. Genitourinary: Negative, except as otherwise mentioned in the history above. Musculoskeletal: Negative, except as otherwise mentioned in the history above. Neurological: Negative, except as otherwise mentioned in the history above. Psychiatric: Negative, except as otherwise mentioned in the history above. Hematologic/Lymphatic: Negative, except as otherwise mentioned in the history above. Allergic/Immunologic: Negative, except as otherwise mentioned in the history above. H&P Surgical Exam Exam General: Alert, Oriented X3, Mild Distress HEENT: Within normal limits & unremarkable Respiratory: Clear to Auscultation Cardiac: Regular Rate/Rhythm, No Murmurs/Rubs/Gallops Abdomen: Soft, Other (Mild tender bulge in the mid-epigastrium c/w incarcerated hernia as seen on CT) Breasts: Not Indicated Pelvic: Not Indicated Assessment & Plan Assessment 41yof BMI 73 with incarcerated recurrent incisional hernia of the mid epigastrium. I reduced it today at the bedside. VTE Prophylaxis: Sub-Q Heparin (Unfractionated) VTE Mechanical Devices: Intermittant Pneumatic CD Plan: Continue NG Continue NPO MIVF I will continue to follow. If this patient requires surgery she will likely require transfer given the anesthetic requirements due to BMI >60. I briefly discussed the care home effects of this, the reasoning behind avoiding the OR, and ultimately recommended she consider bariatric surgery in the future; on an elective basis she would need to achieve at a minimum BMI <45 and ideally <35 prior to repeat hernia repair, which will be a substantial undertaking. Resuscitation Status: CPR: Attempt Resuscitation Kristan Garrido MD Feb 27, 2017 00:46
[2017-02-27 05:15] VITALS: BP 125/81; PULSE 81; RESP 22; O2SAT 93
[2017-02-27] MEDS: Heparin 5,000 Unit/mL Inj SUBQ SCH ×3 (05:24→21:25)
[2017-02-27] MEDS: HYDROmorphone 1 mg/mL Inj IVPUSH PRN ×4 (05:25→21:26)
[2017-02-27] MEDS: 0.9% Sodium Chloride 1,000 ML IV SCH ×2 (06:27→16:40)
[2017-02-27 06:59] LABS: BASOPHILS % (AUTO) 0.2 % (0-3); EOSINOPHILS % (AUTO) 0.9 % (0-5); MONOCYTES % (AUTO) 5.8 % (4-12); Mean Corpuscular Hemoglobin 25.5 pg (27.0-35.0); Mean Corpuscular Volume 85.1 fL (81-100); NEUTROPHILS % (AUTO) 66.9 % (40-74); Platelet Count 247 bil/L (150-400)
[2017-02-27 11:15] VITALS: BP 132/83; PULSE 74; RESP 20; O2SAT 93
--- NOTE | 2017-02-27 15:57 | PCM.PNSURG ---
Subjective Visit Information: Reason for Visit SBO Surgery/Surgery Date Post-Op Day # Date of Admission: Feb 26, 2017 at 12:45 Hospital Day # Subjective: Stable overnight. Pain improved. I reduced the hernia again this morning at 0800. ~1200mL of brown fluid in NG. WBC normalized. Objective Vital Sign- Last 8 Hours Date Time Temp Pulse Resp B/P Pulse Ox O2 Delivery O2 Flow Rate FiO2 02/27/17 11:15 36.2 74 20 132/83 93 Room Air Intake and Output- Last 8 Hour 02/27/17 Cumulative From/Thru 07:00 02/26/17 03:14 - 02/27/17 06:35 Intake Total 1488 ml 3688 ml Output Total 1700 ml 2150 ml Balance -212 ml 1538 ml Intake Oral 0 ml 200 ml IV Total 1488 ml 3488 ml Output Urine Total 500 ml 700 ml Gastric Drainage Total 1200 ml 1200 ml Emesis 250 ml # Voids 1 # Bowel Movements 0 0 General: Alert, Oriented X3, Cooperative, No Acute Distress Abdomen: Soft, Other (mild tenderness in mid-epigastrium; hernia reduced again) Result Diagram: 02/27/17 0645 02/27/17 0645 Assessment & Plan Impression 41yof with reducible symptomatic recurrent incisional upper midline hernia, BMI ~73 Problems: Plan Continue NG in am, if symptoms continue to improve, ok to D/C NG in PM. Strong recommendation of consideration of bariatric surgery. VTE Prophylaxis: Sub-Q Heparin (Unfractionated) Resuscitation Status: CPR: Attempt Resuscitation Kristan Garrido MD Feb 27, 2017 15:57
[2017-02-27 18:20] VITALS: BP 113/69; PULSE 77; RESP 18; O2SAT 97
--- NOTE | 2017-02-27 18:33 | NUR ---
NG Tube Removal Orders received for NG tube removal. Patient agreeable and eager for NG tube to be removed. Tube removed without incident, patient currently reporting no increase in nausea. Care is ongoing.
--- NOTE | 2017-02-27 19:14 | NUR ---
Social Work Note: Screen Note Data & Assessment: EMR reviewed. Patient is a 41 year old female admitted on 02/26/17 for SBO. Pt has [employer] for insurance coverage and sees Ila Goss MD for primary care. Pt lives in [place] with family and is independent at baseline. Pt is currently independent in her room. No discharge needs identified at this time. SW to continue to follow if any needs arise. Plan: Anticipated discharge home via POV when medically ready. No discharge needs identified at this time. SW to continue to follow if any needs arise. Ade Felder, [place], ACM
[2017-02-27 20:45] VITALS: BP 110/73; PULSE 76; O2SAT 94
--- NOTE | 2017-02-27 21:28 | PCM.PNMED ---
Subjective Date of Service Feb 27, 2017 Subjective Patient is seen and examined. She says that she has not been needing a nausea medication. She states that the NG tube canister is not it several times a day. Said so far she has had about 17-1800 mL of output. Her pain has improved and she feels that mood due more to the right of her hernia is posterior left side yesterday. She is taking the pain medication as scheduled and she says that it is helping her pain. She is wanting to know if she can get rid off her to the NG tube. Exam Vital Signs Vital Sign - Last Date Time Temp Pulse Resp B/P Pulse Ox O2 Delivery O2 Flow Rate FiO2 02/27/17 11:15 36.2 74 20 132/83 93 Room Air Intake and Output 02/26/17 02/26/17 02/27/17 Cumulative From/Thru 15:00 23:00 07:00 02/26/17 03:14 - 02/27/17 06:35 Intake Total 200 ml 1488 ml 3688 ml Output Total 250 ml 200 ml 1700 ml 2150 ml Balance -250 ml 0 ml -212 ml 1538 ml Intake Oral 200 ml 0 ml 200 ml IV Total 1488 ml 3488 ml Output Urine Total 200 ml 500 ml 700 ml Gastric Drainage Total 1200 ml 1200 ml Emesis 250 ml 250 ml # Voids 1 1 # Bowel Movements 0 0 Exam General: NAD, laying in bed,, morbidly obese HEENT: NCAT Eyes: [employer] conjunctivae. No ptosis, PERRL Neck: No masses, trachea midline, no thyromegaly Lungs: CTA with normal respiratory effort, no crackles or wheezes CV: RRR, no murmurs/rubs/gallops, normal PMI GI: Soft, nondistended. Hypoactive bowel sounds. Lower abdominal hernia bulge is felt, mild tenderness to palpation over the right side of the bulge MSK: no digital cyanosis Skin: Warm and dry Psych: A&O X3, with appropriate affect Neuro no focal deficits IVs and Medications IV Fluids Normal 100 mL/h Medications Reviewed: Medications were reviewed in detail Lab and Diagnostics Result Diagram: 02/27/17 0645 02/27/17 0645 Assessment & Plan Assessment and plan Assessment #1 small bowel obstruction and likely incarcerated hernia: Present on admission -- Continue diet -- IV fluids running at 1 25 mL/h -- Zofran for p nausea and see control -- Morphine when necessary for pain control -- Protonix IV 40 mg every 24 for GI prophylaxis -- Consult general surgery: Surgery has reduced the hernia 2. We will continue to follow, discussed patient's management today with them. Dr. Garrido feels we can try taking out the NG tube, may have to reinsert if patient worsens. We could try clear liquids tomorrow if she tolerates removal of NG tube. She feels that patient is a bariatric surgery, as she has already failed abdominal surgery before -- We will consider transfer if she requires a surgery and conservative management fails -- Discontinue NG tube -- Ketorolac when necessary Assessment #2 chronic bipolar -- Hold by mouth medication at this time -- We will start when she takes clears Code status: Full code Advanced decision maker: Has been Maycee Diet nothing by mouth Disposition: 2- 3 days to home if symptoms are brought under control, her transfer to outside facility for abdominal surgery due to morbid obesity. We will still need a follow for outpatient surgery Pain Evaluation: Adequate Pain Control GI Prophylaxis: Proton Pump Inhibitor VTE Prophylaxis: Sub-Q Heparin (Unfractionated) VTE Mechanical Devices: Intermittant Pneumatic CD Resuscitation Status: CPR: Attempt Resuscitation Kira West DO Feb 27, 2017 15:40
--- NOTE | 2017-02-28 00:12 | NUR ---
Pain/BM Pt received Tramadol and Dilaudid IVP for c/o abd pain. Pt states medications have a good effect. Small bm produced this shift and pt appears satisfied with the results. Care ongoing.
--- NOTE | 2017-02-28 00:55 | NUR ---
Assumed Care Assumed patient care at 2300. Introduced self to patient, letting her know of the change in nursing care. Denies any CP, SOB, N/V. Complains of 4/10 abdominal pain. New IV placed in right inner forearm due to right hand IV no longer working. IV has NS @ 100cc/hr infusing. Will continue to monitor, and continue Q1 hour checks.
[2017-02-28] MEDS: HYDROmorphone 1 mg/mL Inj IVPUSH PRN ×2 (03:02→22:13)
[2017-02-28] MEDS: 0.9% Sodium Chloride 1,000 ML IV SCH ×2 (03:02→14:45)
[2017-02-28] MEDS: Heparin 5,000 Unit/mL Inj SUBQ SCH ×3 (05:07→22:13)
[2017-02-28 05:45] VITALS: BP 130/80; PULSE 74; RESP 16; O2SAT 95
[2017-02-28 06:27] LABS: BASOPHILS % (AUTO) 0.5 % (0-3); EOSINOPHILS % (AUTO) 1.3 % (0-5); MONOCYTES % (AUTO) 5.7 % (4-12); Mean Corpuscular Hemoglobin 25.1 pg (27.0-35.0); Mean Corpuscular Volume 84.5 fL (81-100); NEUTROPHILS % (AUTO) 62.6 % (40-74); Platelet Count 230 bil/L (150-400)
[2017-02-28] MEDS ORDERED: lamoTRIgine 100 mg Tablet PO SCH (09:10)
--- NOTE | 2017-02-28 09:38 | DRSVH ---
PROCEDURE: X-RAY ACUTE ABDOMINAL SERIES ([id number]) INDICATIONS: obstruction TECHNIQUE: One view chest and two views of the abdomen were acquired. COMPARISON: [facility], CT, CT ABD PELVIS W CON, 02/26/2017, 8:42. [facility], CR, XR ABD ACUTE SERIES 3VW, 02/26/2017, 7:35. [facility], CR, XR ABD ACUTE SERIES 3VW , 02/25/2017, 13:27. FINDINGS: Surgical changes and devices: Right upper quadrant surgical clips suggest prior cholecystectomy. Chest: Lungs are clear. Heart size is normal. No pleural effusions. No pneumoperitoneum. Abdomen: Bowel gas pattern is normal. No suspicious calcifications. Visualized solid organ contour s appear normal. Bones: No suspicious bony lesions. IMPRESSION: Nonspecific bowel gas pattern, no sign of intestinal obstruction or perforation. Right upper quadrant cholecystectomy clips, a definite source of new pain is not seen. Dictated by: Homero Cheek M.D. on 02/28/2017 at 9:35 Approved by: Homero Cheek M.D. on 02/28/2017 at 9:36
[2017-02-28] MEDS: LAMICTAL PO SCH (09:54)
--- NOTE | 2017-02-28 11:29 | PROG NOTE ---
[address] [address] PROGRESS NOTE PATIENT: JACQUELINE TAYLOR : 1975 MR#: [id number] ADMIT: 02/26/2017 JOB ID: [id number] DATE: 02/28/2017 SUBJECTIVE: The patient is seen in followup. She has had no abdominal pain, nausea or vomiting in the last 24 hours. REVIEW OF SYSTEMS: She has had a bowel movement. IMPRESSION: Severe super-morbid obesity with a body mass index of 73, and a recurrent incisional hernia, which is currently asymptomatic. PLAN: I agree with Dr. Garrido that she clearly needs to have a gastric bypass. The patient wonders how that can be arranged, and the patient should return to see Dr. Garrido in the next few weeks for discussion of that, and I think referral down to the [facility] for a gastric bypass in the setting of super-morbid obesity. The Surgical team will sign off at this point.
--- NOTE | 2017-02-28 13:11 | PCM.PNMED ---
Subjective Date of Service Feb 28, 2017 Subjective Patient is seen and examined. She is feeling much better today states he has she is not needing her pain medication as much. She is willing to try eating. Denies nausea vomiting fevers chills. Exam Vital Signs Vital Sign - Last Date Time Temp Pulse Resp B/P Pulse Ox O2 Delivery O2 Flow Rate FiO2 02/27/17 20:45 36.7 76 110/73 94 Room Air 02/27/17 18:20 18 Intake and Output 02/27/17 02/27/17 02/28/17 Cumulative From/Thru 15:00 23:00 07:00 02/26/17 03:14 - 02/28/17 05:21 Intake Total 1285 ml 987 ml 5960 ml Output Total 2050 ml 4200 ml Balance -765 ml 987 ml 1760 ml Intake Oral 0 ml 200 ml IV Total 1285 ml 987 ml 5760 ml Output Urine Total 800 ml 1500 ml Gastric Drainage Total 1250 ml 2450 ml Emesis 250 ml # Voids 1 # Bowel Movements 0 Exam General: NAD, laying in bed, pleasant HEENT: NCAT, Eyes: [place] conjunctivae. No ptosis Neck: No masses, trachea midline, no thyromegaly Lungs: CTA with normal respiratory effort, no crackles or wheezes CV: RRR, no murmurs/rubs/gallops, normal PMI Skin: Warm and dry. Psych: A&O X3, with appropriate affect Abdomen normal bowel sounds in all 4 quarters soft, nontender mild tenderness around the bulge that is her baseline IVs and Medications IV Fluids Normal saline 100 mL per hour Medications Reviewed: Medications were reviewed in detail Lab and Diagnostics Laboratory Tests 72 Hours Test 02/26/17 04:06 02/27/17 06:45 02/28/17 06:15 White Blood Count 11.0th/mm3 (3.8-10.1) 8.8th/mm3 (3.8-10.1) 7.5th/mm3 (3.8-10.1) Red Blood Count 4.71mil/mm3 (3.90-5.20) 4.16mil/mm3 (3.90-5.20) 4.06mil/mm3 (3.90-5.20) Hemoglobin 11.8g/dL (12.0-15.6) 10.6g/dL (12.0-15.6) 10.2g/dL (12.0-15.6) Hematocrit 38.5% (35.0-46.0) 35.4% (35.0-46.0) 34.3% (35.0-46.0) Mean Corpuscular Volume 81.7fL (81-100) 85.1fL (81-100) 84.5fL (81-100) Mean Corpuscular Hemoglobin 25.1pg (27.0-35.0) 25.5pg (27.0-35.0) 25.1pg (27.0-35.0) Mean Corpuscular Hemoglobin Concent 30.6% (32.0-37.0) 29.9% (32.0-37.0) 29.7% (32.0-37.0) Red Cell Distribution Width 17.2% (12.3-15.4) 17.3% (12.3-15.4) 17.1% (12.3-15.4) Platelet Count 307bil/L (150-400) 247bil/L (150-400) 230bil/L (150-400) Neutrophils (%) (Auto) 71.1% (40-74) 66.9% (40-74) 62.6% (40-74) Lymphocytes (%) (Auto) 21.1% (14-46) 25.9% (14-46) 29.5% (14-46) Monocytes (%) (Auto) 6.1% (4-12) 5.8% (4-12) 5.7% (4-12) Eosinophils (%) (Auto) 1.0% (0-5) 0.9% (0-5) 1.3% (0-5) Basophils (%) (Auto) 0.4% (0-3) 0.2% (0-3) 0.5% (0-3) Sodium Level 140mEq/L (134-144) 144mEq/L (134-144) 143mEq/L (134-144) Potassium Level 3.7mEq/L (3.5-5.2) 3.9mEq/L (3.5-5.2) 4.2mEq/L (3.5-5.2) Chloride Level 100mEq/L (97-108) 108mEq/L (97-108) 108mEq/L (97-108) Carbon Dioxide Level 26mmol/L (18-29) 25mmol/L (18-29) 24mmol/L (18-29) Blood Urea Nitrogen 9mg/dL (6-20) 8mg/dL (6-20) 9mg/dL (6-20) Creatinine 0.58mg/dL (0.57-1.00) 0.55mg/dL (0.57-1.00) 0.50mg/dL (0.57-1.00) Estimat Glomerular Filtration Rate 166mL/min (>59) 176mL/min (>59) 197mL/min (>59) Glucose Level 126mg/dL (60-99) 105mg/dL (60-99) 92mg/dL (60-99) Calcium Level 9.4mg/dL (8.5-10.1) 7.8mg/dL (8.5-10.1) 8.1mg/dL (8.5-10.1) Total Bilirubin 0.7mg/dL (0.0-1.2) 0.4mg/dL (0.0-1.2) 0.5mg/dL (0.0-1.2) Aspartate Amino Transf (AST/SGOT) 13U/L (0-50) 17U/L (0-50) 13U/L (0-50) Alanine Aminotransferase (ALT/SGPT) 16U/L (0-32) 15U/L (0-32) 14U/L (0-32) Alkaline Phosphatase 62U/L (25-150) 54U/L (25-150) 52U/L (25-150) Total Protein 6.8g/dL (6.4-8.4) 5.6g/dL (6.4-8.4) 5.5g/dL (6.4-8.4) Albumin 3.8g/dL (3.4-5.0) 3.7g/dL (3.4-5.0) 3.6g/dL (3.4-5.0) Result Diagram: 02/27/17 0645 02/27/17 0645 Microbiology Blood cultures negative to date X-Rays, CTs and MRIs [facility] [place] [address] Patient Name: JACQUELINE TAYLOR MR#: [id number] Location: [facility] Ordering Phys: Kira West DO Date of Service: 02/28/17 0600 PROCEDURE: X-RAY ACUTE ABDOMINAL SERIES ([id number]) INDICATIONS: obstruction TECHNIQUE: One view chest and two views of the abdomen were acquired. COMPARISON: [facility], CT, CT ABD PELVIS W CON, 02/26/2017, 8:42. [facility], CR, XR ABD ACUTE SERIES 3VW, 02/26/2017, 7:35. [facility], CR, XR ABD ACUTE SERIES 3VW, 02/25/2017, 13:27. FINDINGS: Surgical changes and devices: Right upper quadrant surgical clips suggest prior cholecystectomy. Chest: Lungs are clear. Heart size is normal. No pleural effusions. No pneumoperitoneum. Abdomen: Bowel gas pattern is normal. No suspicious calcifications. Visualized solid organ contours appear normal. Bones: No suspicious bony lesions. IMPRESSION: Nonspecific bowel gas pattern, no sign of intestinal obstruction or perforation. Right upper quadrant cholecystectomy clips, a definite source of new pain is not seen. Dictated by: Homero Cheek M.D. on 02/28/2017 at 9:35 Approved by: Homero Cheek M.D. on 02/28/2017 at 9:36 Assessment & Plan Assessment and plan Assessment #1 small bowel obstruction and likely incarcerated hernia: Present on admission -- Continue diet -- IV fluids running at 1 25 mL/h -- Zofran for p nausea and see control -- Morphine when necessary for pain control -- Protonix IV 40 mg every 24 for GI prophylaxis -- Consult general surgery: Surgery has reduced the hernia 2. We will continue to follow, discussed patient's management today with them. Dr. Garrido feels we can try taking out the NG tube, may have to reinsert if patient worsens. We could try clear liquids tomorrow if she tolerates removal of NG tube. She feels that patient is a bariatric surgery, as she has already failed abdominal surgery before -- We will consider transfer if she requires a surgery and conservative management fails -- Discontinue NG tube: Discontinued on 02/27 -- Ketorolac when necessary --General surgery has signed off. We recommend follow-up with Dr. Hema rios arrange for a bariatric surgery -- Abdominal x-ray follow-up showed no evidence of obstruction normal bowel pattern. Started her on clears today plan to advance as tolerated Assessment #2 chronic bipolar -- Restarted her medication lamotrigine today Code status: Full code Advanced decision maker: Has been Maycee Diet start with clears and advance as tolerated Disposition: 1-2 days to home if symptoms are brought under control, her transfer to outside facility for abdominal surgery due to morbid obesity. We will still need a follow for outpatient bariatric surgery surgery Pain Evaluation: Adequate Pain Control GI Prophylaxis: Proton Pump Inhibitor VTE Prophylaxis: Sub-Q Heparin (Unfractionated) VTE Mechanical Devices: Intermittant Pneumatic CD Resuscitation Status: CPR: Attempt Resuscitation Kira West DO Feb 28, 2017 06:09
[2017-02-28 14:20] VITALS: BP 129/77; PULSE 83; RESP 18; O2SAT 99
--- NOTE | 2017-02-28 15:13 | NUR ---
Social Work: Readiness for Discharge D: EMR reviewed, pt is not medically stable for discharge at this time. MARINE BIOLOGIST met with pt at bedside to confirm discharge plan. Pt has no concerns about discharge home once medically stable. Pt has been ambulating I during admission and no discharge needs identified at this time. Pt has not completed AD. MARINE BIOLOGIST offered the pt information which the pt accepted. A: Pt who is I at baseline and lives at home with her spouse and children. P: Anticipate pt to discharge home with spouse to transport when ready; MARINE BIOLOGIST to continue to follow. SEEMA Gusman
--- NOTE | 2017-02-28 17:38 | NUR ---
Pain, Diet Advance Patient continues to have some intermittent pain to the abdomen, controlled with ordered pain medications. Patient denies any nausea or vomiting. Diet advanced, patient tolerating fluids well. Care is ongoing.
[2017-02-28 21:59] VITALS: BP 116/75; PULSE 72; RESP 18; O2SAT 96
[2017-03-01] MEDS: 0.9% Sodium Chloride 1,000 ML IV SCH ×2 (00:41→09:54)
[2017-03-01] MEDS: HYDROmorphone 1 mg/mL Inj IVPUSH PRN (04:49)
[2017-03-01 06:18] VITALS: BP 127/90; PULSE 68; RESP 22; O2SAT 96
[2017-03-01 07:42] LABS: BASOPHILS % (AUTO) 0.5 % (0-3); EOSINOPHILS % (AUTO) 1.6 % (0-5); Mean Corpuscular Hemoglobin 25.4 pg (27.0-35.0); Platelet Count 257 bil/L (150-400)
--- NOTE | 2017-03-01 07:43 | NUR ---
Sleeping/ IV site Patient sleeping comfortably awaken few times due to pain. Break through pain occurring once during shift. Repositioning offered to alleviate pain in addition to medications. Comfortable at this time. IV patent and fluids infusing, but reported to oncoming RN to watch closely as it was symptomatic during this shift.
[2017-03-01] MEDS: LAMICTAL PO SCH (08:05)
[2017-03-01] MEDS: Heparin 5,000 Unit/mL Inj SUBQ SCH ×3 (08:05→23:13)
[2017-03-01 08:08] VITALS: BP 134/86; PULSE 69; RESP 16; O2SAT 100
--- NOTE | 2017-03-01 13:22 | NUR ---
GI Diet was advanced to a soft for breakfast. Tolerated it well. Denies nausea/pain. Denies SOB. Patient has been ambulating independently. Tolerated activity well. Addendum: 03/01/17 at 1749 by ERICKA GALICIA RN ACTIVITY Patient was medicated with Ibuprofen 400 mg PO X 1 for complaints of abdominal cramping due to her menstrual period. Tolerating liquids PO and her diet well. Denies nausea. No emesis noted. Ambulating independently.
[2017-03-01 13:34] VITALS: BP 130/87; PULSE 71; RESP 18; O2SAT 100
[2017-03-01 18:06] VITALS: BP 105/59; PULSE 108; RESP 16; O2SAT 93
[2017-03-01 20:27] VITALS: BP 141/80; PULSE 69; RESP 18; O2SAT 96
--- NOTE | 2017-03-01 22:14 | PCM.PNMED ---
Subjective Date of Service Mar 01, 2017 Subjective Patient is feeling much better. Denies overnight fever/chills. Diet is advanced. It is concerning to me that she has taken regularly pain medication yesterday. Have discussed this with her, change her to by mouth pain meds in preparation for discharge to home. Exam Vital Signs Vital Sign - Last Date Time Temp Pulse Resp B/P Pulse Ox O2 Delivery O2 Flow Rate FiO2 02/28/17 21:59 36.5 72 18 116/75 96 Room Air Intake and Output 02/28/17 02/28/17 03/01/17 Cumulative From/Thru 15:00 23:00 07:00 02/26/17 03:14 - 02/28/17 19:00 Intake Total 150 ml 2144 ml 8254 ml Output Total 400 ml 4600 ml Balance 150 ml 1744 ml 3654 ml Intake Oral 150 ml 1200 ml 1550 ml IV Total 944 ml 6704 ml Output Urine Total 400 ml 1900 ml Gastric Drainage Total 2450 ml Emesis 250 ml # Voids 2 3 6 # Bowel Movements 1 3 4 Exam General: NAD, sitting up in chair, looks well-groomed HEENT: NCAT, Eyes: [place] conjunctivae. No ptosis, PERRL Neck: No masses, trachea midline, no thyromegaly Lungs: CTA with normal respiratory effort, no crackles or wheezes CV: RRR, no murmurs/rubs/gallops, normal PMI GI: Soft, her abdominal bulge appears much better. Normal bowel sounds MSK: no digital cyanosis Skin: Warm and dry. Psych: A&O X3, with appropriate affect IVs and Medications Medications Reviewed: Medications were reviewed in detail Lab and Diagnostics Laboratory Tests Test 03/01/17 07:30 White Blood Count 7.6th/mm3 (3.8-10.1) Red Blood Count 4.29mil/mm3 (3.90-5.20) Hemoglobin 10.9g/dL (12.0-15.6) Hematocrit 35.6% (35.0-46.0) Mean Corpuscular Volume 83.0fL (81-100) Mean Corpuscular Hemoglobin 25.4pg (27.0-35.0) Mean Corpuscular Hemoglobin Concent 30.6% (32.0-37.0) Red Cell Distribution Width 16.9% (12.3-15.4) Platelet Count 257bil/L (150-400) Neutrophils (%) (Auto) 61.0% (40-74) Lymphocytes (%) (Auto) 31.6% (14-46) Monocytes (%) (Auto) 5.0% (4-12) Eosinophils (%) (Auto) 1.6% (0-5) Basophils (%) (Auto) 0.5% (0-3) Sodium Level 139mEq/L (134-144) Potassium Level 4.2mEq/L (3.5-5.2) Chloride Level 105mEq/L (97-108) Carbon Dioxide Level 22mmol/L (18-29) Blood Urea Nitrogen 6mg/dL (6-20) Creatinine 0.40mg/dL (0.57-1.00) Estimat Glomerular Filtration Rate 255mL/min (>59) Glucose Level 93mg/dL (60-99) Calcium Level 8.2mg/dL (8.5-10.1) Total Bilirubin 0.4mg/dL (0.0-1.2) Aspartate Amino Transf (AST/SGOT) 40U/L (0-50) Alanine Aminotransferase (ALT/SGPT) 44U/L (0-32) Alkaline Phosphatase 63U/L (25-150) Total Protein 5.9g/dL (6.4-8.4) Albumin 3.8g/dL (3.4-5.0) Result Diagram: 02/28/1715 02/28/17614 Microbiology Blood cultures negative to date X-Rays, CTs and MRIs [facility] Diagnostic Imaging Department [place], [place] [id number] Patient Name: JACQUELINE TAYLOR MR#: [id number] [place] [facility] [place] Phys: Kira West DO Date of Service: 02/28/17 0600 PROCEDURE: X-RAY ACUTE ABDOMINAL SERIES ([id number]) INDICATIONS: obstruction TECHNIQUE: One view chest and two views of the abdomen were acquired. COMPARISON: [facility], CT, CT ABD PELVIS W CON, 02/26/2017, 8:42. [facility], CR, XR ABD ACUTE SERIES 3VW, 02/26/2017, 7:35. [facility], CR, XR ABD ACUTE SERIES 3VW, 02/25/2017, 13:27. FINDINGS: Surgical changes and devices: Right upper quadrant surgical clips suggest prior cholecystectomy. Chest: Lungs are clear. Heart size is normal. No pleural effusions. No pneumoperitoneum. Abdomen: Bowel gas pattern is normal. No suspicious calcifications. Visualized solid organ contours appear normal. Bones: No suspicious bony lesions. IMPRESSION: Nonspecific bowel gas pattern, no sign of intestinal obstruction or perforation. Right upper quadrant cholecystectomy clips, a definite source of new pain is not seen. Dictated by: Homero Cheek M.D. on 02/28/2017 at 9:35 Approved by: Homero Cheek M.D. on 02/28/2017 at 9:36 Assessment & Plan Assessment and plan Assessment #1 small bowel obstruction and likely incarcerated hernia: Present on admission -- Continue diet -- IV fluids running at 1 25 mL/h -- Zofran for p nausea and see control -- Morphine when necessary for pain control -- Protonix IV 40 mg every 24 for GI prophylaxis -- Consult general surgery: Surgery has reduced the hernia 2. We will continue to follow, discussed patient's management today with them. Dr. Garrido feels we can try taking out the NG tube, may have to reinsert if patient worsens. We could try clear liquids tomorrow if she tolerates removal of NG tube. She feels that patient is a bariatric surgery, as she has already failed abdominal surgery before -- We will consider transfer if she requires a surgery and conservative management fails -- Discontinue NG tube: Discontinued on 02/27 -- Ketorolac when necessary --General surgery has signed off. We recommend follow-up with Dr. Garrido did arrange for a bariatric surgery -- Abdominal x-ray follow-up showed no evidence of obstruction normal bowel pattern. -- Patient is currently eating full liquids with the plans to advance tonight -- We discussed pain management with her. Her medications are changed to by mouth meds. Will see how she does prior to discharging her home. Assessment #2 chronic bipolar -- Restarted her medication lamotrigine today Code status: Full code Advanced decision maker: Has been Maycee Diet start with clears and advance as tolerated Disposition: Tomorrow to home if symptoms are brought under control, her transfer to outside facility for abdominal surgery due to morbid obesity. We will still need a follow for outpatient bariatric surgery surgery GI Prophylaxis: Proton Pump Inhibitor VTE Prophylaxis: Sub-Q Heparin (Unfractionated) VTE Mechanical Devices: Intermittant Pneumatic CD Resuscitation Status: CPR: Attempt Resuscitation Kira West DO Mar 01, 2017 06:00
[2017-03-01] MEDS ORDERED: POLY17PO6 PO (22:15)
[2017-03-01] MEDS ORDERED: Acetaminophen PO (22:15)
[2017-03-01] MEDS ORDERED: OXYC5TAB72 PO (22:15)
[2017-03-01] MEDS ORDERED: IBUP400T22 PO (22:15)
--- NOTE | 2017-03-02 04:52 | NUR ---
Pain Pt complaining of menstruation cramps at beginning of shift 12/19 and was given Tylenol with relief. Pt denies nausea and reports passing gas. Overnight pt needed Tylenol x1 for abdominal pain 01/16 and on reassessment, pt found to be sleeping, appears comfortable.
[2017-03-02 05:23] VITALS: BP 138/69; PULSE 65; RESP 18; O2SAT 98
--- NOTE | 2017-03-02 05:55 | PCM.DIMED ---
Discharge Instructions Date of Service Mar 02, 2017 Dates of Hospitalization Feb 26, 2017 at 12:45 Discharge Diagnosis Discharge Diagnosis Small Bowel Obstruction due to abdominal wall hernia, Bipolar Disorder Diet No restrictions Activity No restrictions Call your provider Fever or Chills, Shortness of breath, Bleeding, Chest pain, Vomitting, Excessive diarrhea, Weakness (unilateral), Other Patient Instructions Please see Dr. Garrido for a f/u in 1-2 weeks. Her office will discuss bariatric surgery options with you. Avoid lifting heavy weights. Please see your PCP in 1-[address] if you take your pain medication, as it will cause sedation. Follow-up plan F/U with Dr. Garrido in 1-2 weeks F/U with PCP in 2 weeks Kira West DO Mar 02, 2017 05:55
[2017-03-02] MEDS: Heparin 5,000 Unit/mL Inj SUBQ SCH (05:57)
[2017-03-02 06:27] LABS: BASOPHILS % (AUTO) 0.6 % (0-3); EOSINOPHILS % (AUTO) 2.2 % (0-5); MONOCYTES % (AUTO) 5.6 % (4-12); Mean Corpuscular Hemoglobin 25.5 pg (27.0-35.0); Mean Corpuscular Volume 81.5 fL (81-100); NEUTROPHILS % (AUTO) 58.4 % (40-74); Platelet Count 282 bil/L (150-400)
--- NOTE | 2017-03-02 08:06 | PCM.DC.MED ---
Discharge Summary Date of Service Mar 02, 2017 Dates of Hospitalization Date of Hospital Admission Feb 26, 2017 at 12:45 Date of Discharge: Mar 02, 2017 Providers: Admitting Physician: Kristan Garriod MD Primary Care Physician: Ila Goss MD Attending Physician: Kristan Garrido MD Diagnosis at Time of Discharge Diagnosis at Time of Discharge Small Bowel Obstruction due to abdominal incisional hernia, Bipolar Disorder Procedures XRay, CTs & MRIs [facility] [place] [address] Patient Name: JACQUELINE TAYLOR MR#: [id number] Location: [facility] Ordering Phys: Abraham Tolentino MD Date of Service: 02/26/17 0709 PROCEDURE: X-RAY ACUTE ABDOMINAL SERIES ([id number]) INDICATIONS: pain/ nausea TECHNIQUE: One view chest and two views of the abdomen were acquired. COMPARISON: [facility], CR, XR ABD ACUTE SERIES 3VW, 02/25/2017, 13: 27. FINDINGS: Surgical changes and devices: None. Chest: There are a few linear bibasilar opacities likely representing atelectasis. Heart size is normal. No pleural effusions. No pneumoperitoneum. Abdomen: There is a paucity of gas in the bowel. There are scattered air- fluid levels in the abdomen likely within small bowel. No suspicious calcifications. Bones: No suspicious bony lesions. IMPRESSION: 1. Nonspecific bowel gas pattern with a few scattered air-fluid levels but paucity of intraluminal gas. The differential includes bowel obstruction as well as gastroenteritis or an ileus. Further evaluation may be obtained with CT if clinically indicated. Dictated by: Jac Mei M.D. on 02/26/2017 at 8:29 Approved by: Jac Mei M.D. on 02/26/2017 at 8:31 [facility] [place] [address] Patient Name: JACQUELINE TAYLOR MR#: [id number] Location: [facility] Ordering Phys: Kira Jauregui DO Date of Service: 02/28/17 0600 PROCEDURE: X-RAY ACUTE ABDOMINAL SERIES ([id number]) INDICATIONS: obstruction TECHNIQUE: One view chest and two views of the abdomen were acquired. COMPARISON: [facility], CT, CT ABD PELVIS W CON, 02/26/2017, 8:42. [facility], CR, XR ABD ACUTE SERIES 3VW, 02/26/2017, 7:35. [facility], CR, XR ABD ACUTE SERIES 3VW, 02/25/2017, 13:27. FINDINGS: Surgical changes and devices: Right upper quadrant surgical clips suggest prior cholecystectomy. Chest: Lungs are clear. Heart size is normal. No pleural effusions. No pneumoperitoneum. Abdomen: Bowel gas pattern is normal. No suspicious calcifications. Visualized solid organ contours appear normal. Bones: No suspicious bony lesions. IMPRESSION: Nonspecific bowel gas pattern, no sign of intestinal obstruction or perforation. Right upper quadrant cholecystectomy clips, a definite source of new pain is not seen. Dictated by: Homero Cheek M.D. on 02/28/2017 at 9:35 Approved by: Homero Cheek M.D. on 02/28/2017 at 9:36 [facility] Diagnostic [place] [address] Patient Name: JACQUELINE TAYLOR MR#: [id number] Location: [facility] Ordering Phys: Abrhaam Tolentino MD Date of Service: 02/26/17823 PROCEDURE: CT ABDOMEN AND PELVIS WITH CONTRAST ([id number]) INDICATIONS: Abdominal pain, vomiting and diarrhea. TECHNIQUE: After the administration of intravenous contrast, 5 mm thick sections acquired from the diaphragm to the symphysis. 5 mm coronal and sagittal reformats were acquired. For radiation dose reduction, the following was used: automated exposure control, adjustment of mA and/or kV according to patient size. COMPARISON: [facility], CT, ABD/PELVIS W/CON (PNL), 10/14/2014, 13 :47. [facility], CT, ABD/PELVIS W/CON (PNL), 10/11/2014, 11:26. [facility], CR, XR ABD ACUTE SERIES 3VW, 02/25/2017, 13:27. [facility], CR, XR ABD ACUTE SERIES 3VW, 02/26/2017, 7:35. [facility], CT, ABD/PELVIS W/CON (PNL), 08/09/2015, 18:26. [facility] , CT, ABD/PELVIS W/CON (PNL), 07/28/2012, 9:46. FINDINGS: Image quality: Excellent. ABDOMEN: Lung bases: Lung bases are clear. Heart size is normal. There is a small hiatal hernia. Solid organs: Liver is elongated with a Britton's lobe. Spleen is enlarged. Spleen measures 14.7 cm in length. There are numerous small hypodense nodules in spleen Gallbladder is surgically absent. Biliary system is non dilated. Pancreas enhances normally. No adrenal nodules. Kidneys demonstrate normal size and enhancement, without hydronephrosis. Peritoneum and bowel: Proximal small bowel loops are fluid-filled and distended measuring up to 4.4 cm, demonstrating normal thickness. The distal ileum and colon are small in caliber. There is transition point in small bowel caliber within the large ventral hernia sac. No free fluid or air. Nodes and vessels: No retroperitoneal or mesenteric adenopathy by size criteria. Aorta and inferior vena cava are normal in size. Miscellaneous: There is a large ventral hernia containing loops of small intestine and small bowel mesentery. There is increased stranding within the hernia. PELVIS: Genitourinary: Bladder wall thickness is normal. Miscellaneous: No inguinal hernias or adenopathy. Bones: No suspicious bony lesions. No vertebral body compression fractures. IMPRESSION: 1. Distal small bowel obstruction. The transitional point is within the large ventral hernia. 2. Large ventral hernia containing small bowel and mesentery. There is increased stranding within the hernia. 3. Splenomegaly. There are numerous small hypodense nodules in spleen. Differential diagnosis includes inflammatory conditions such as sarcoidosis, but infiltrative process such as Gaucher's disease, and neoplasm such as leukemia or lymphoma. Recommend clinical correlation and followup. Dictated by: Audrey Bonilla M.D. on 02/26/2017 at 9:15 Approved by: Audrey Bonilla M.D. on 02/26/2017 at 9:43 Brief History 41-year-old morbidly obese pleasant female is visiting. Abdominal pain ongoing for daily as onset was 3 days ago. She was seen in the ED last night for similar symptoms and was sent home on mag citrate and GoLYTELY when necessary. She said mag citrate did not give her any relief she has not tried the GoLYTELY. She states that she was seen at [facility] for in the past for constipation. She did not have abdominal pain this bad ever before. She feels dehydrated, she denies urine symptoms. She has nausea vomiting diarrhea, lower abdominal pain, dehydration. She denies fevers or chills. Past surgical history includes hernia repair in the lower abdomen by 2 and cholecystectomy. In the ER CT of the abdomen showed distal SBO very large ventral hernia with transition point at the at the large ventral hernia. Increased stranding around hernia noted also splenomegaly. White count is 11 blood pressure 163/105 glucose is 126 otherwise her labs were unremarkable patient is given IV fluids and Zofran she had some small stool after 2 enemas. Surgery was consulted Dr. Garrido has reviewed the case will see the patient. She agrees to conservatively manage patient's obstruction as long as she does not be required surgical repair. Patient is currently appearing comfortable in the room denies pain, states that her medications are controlling her pain well. Patient is admitted to the [facility] team with general surgery consult being for small bolus obstruction likely because of an incarcerated hernia. Hospital Course Assessment and plan Assessment #1 small bowel obstruction and likely incarcerated hernia: Present on admission -- Continue diet -- IV fluids running at 1 25 mL/h -- Zofran for p nausea and see control -- Morphine when necessary for pain control -- Protonix IV 40 mg every 24 for GI prophylaxis -- Consult general surgery: Surgery has reduced the hernia 2. We will continue to follow, discussed patient's management today with them. Dr. Garrido feels we can try taking out the NG tube, may have to reinsert if patient worsens. We could try clear liquids tomorrow if she tolerates removal of NG tube. She feels that patient is a bariatric surgery, as she has already failed abdominal surgery before -- We will consider transfer if she requires a surgery and conservative management fails -- Discontinue NG tube: Discontinued on 02/27 -- Ketorolac when necessary --General surgery has signed off. We recommend follow-up with Dr. Garrido did arrange for a bariatric surgery -- Abdominal x-ray follow-up showed no evidence of obstruction normal bowel pattern. -- Patient is currently eating full liquids with the plans to advance tonight -- Patient has not taken any pain medications for a day prior to Her discharge. She is ambulating, tolerating normal diet and wanting to be discharged home -- She will follow-up with Dr. Kristan Garrido in 1-2 weeks to discuss her options for bariatric surgery. We recommend that she be given an abdominal binder at that time to hold her hernia in place. Assessment #2 chronic bipolar -- Restarted her medication lamotrigine today Code status: Full code Advanced decision maker: Has been Maycee Diet start with clears and advance as tolerated Exam Vital Signs (Last) Date Time Temp Pulse Resp B/P Pulse Ox O2 Delivery O2 Flow Rate FiO2 03/02/17 05:23 36.7 65 18 138/69 98 Room Air Exam General: No acute distress sitting up in chair, able to move around the room HEENT: Normocephalic, atraumatic Heart: Regular rate and rhythm no S3-S4 sounds Lungs: Clear to auscultation no wheezes or crackles heard Neuro: No focal deficits Psychiatric: No anxiety Abdominal: Minimal tenderness in RUQ but otherwise is completely normal. Normal bowel sounds soft abdomen Extremities: Negative for edema Test 03/02/17 05:55 White Blood Count 7.2th/mm3 (3.8-10.1) Red Blood Count 4.43mil/mm3 (3.90-5.20) Hemoglobin 11.3g/dL (12.0-15.6) Hematocrit 36.1% (35.0-46.0) Mean Corpuscular Volume 81.5fL (81-100) Mean Corpuscular Hemoglobin 25.5pg (27.0-35.0) Mean Corpuscular Hemoglobin Concent 31.3% (32.0-37.0) Red Cell Distribution Width 16.9% (12.3-15.4) Platelet Count 282bil/L (150-400) Neutrophils (%) (Auto) 58.4% (40-74) Lymphocytes (%) (Auto) 32.8% (14-46) Monocytes (%) (Auto) 5.6% (4-12) Eosinophils (%) (Auto) 2.2% (0-5) Basophils (%) (Auto) 0.6% (0-3) Sodium Level 140mEq/L (134-144) Potassium Level 4.2mEq/L (3.5-5.2) Chloride Level 104mEq/L (97-108) Carbon Dioxide Level 22mmol/L (18-29) Blood Urea Nitrogen 8mg/dL (6-20) Creatinine 0.49mg/dL (0.57-1.00) Estimat Glomerular Filtration Rate 201mL/min (>59) Glucose Level 106mg/dL (60-99) Calcium Level 8.7mg/dL (8.5-10.1) Total Bilirubin 0.3mg/dL (0.0-1.2) Aspartate Amino Transf (AST/SGOT) 33U/L (0-50) Alanine Aminotransferase (ALT/SGPT) 59U/L (0-32) Alkaline Phosphatase 64U/L (25-150) Total Protein 5.8g/dL (6.4-8.4) Albumin 3.9g/dL (3.4-5.0) Microbiology Results Blood cultures negative to date Discharge Medications Discharge Medications Lamotrigine (Lamotrigine) 100 Mg Tablet 300 MG PO DAILY (Reported) As needed ([Acetaminophen]) 325 MG TABLET 650 MG PO Q6H PRN PRN For Mild Pain or Fever Prescribed by: KIRA JAUREGUI DO Ibuprofen (Ibuprofen) 400 Mg Tablet 400 MG PO Q6H PRN PRN For Pain Prescribed by: KIRA JAUREGUI DO Polyethylene Glycol 3350 (Miralax) 17 Gm Powd.pack 17 GM PO DAILY PRN PRN For Constipation Prescribed by: KIRA JAUREGUI DO oxyCODONE (oxyCODONE) 5 Mg Tablet 5 MG PO Q4H PRN PRN For Moderate Pain Prescribed by: KIRA JAUREGUI DO Followup Plan Follow-up plan F/U with Dr. Garrido in 1-2 weeks F/U with PCP in 2 weeks Discharge Diet: No restrictions Discharge Activity: No restrictions Patient Instructions Please see Dr. Garrido for a f/u in 1-2 weeks. Her office will discuss bariatric surgery options with you. Avoid lifting heavy weights. Please see your PCP in 1-[address] if you take your pain medication, as it will cause sedation. Kira Jauregui DO Mar 02, 2017 08:06
[2017-03-02] MEDS: LAMICTAL PO SCH (09:04)
--- NOTE | 2017-03-02 10:12 | NUR ---
Social Work: Discharge Data: Pt is a 41 y/o female on day 4 of hospitalization admitted for SBO per H&P. Pt has been been up and independent in her room. No discharge needs identified. Pt was disharged home today via POV with . Assessment: Pt has no identified discharge needs. Plan: Pt has been discharged home with no anticipated needs. SEEMA Chaparro
[2017-03-02 10:25] VITALS: BP 152/92; PULSE 70; RESP 16; O2SAT 96
--- NOTE | 2017-03-02 10:51 | NUR ---
Discharge Patient DC to home with spouse. DC VSS, patient agreeable to DC. All DC information and education given to patient and spouse. Both verbalize understanding of all. DC prescriptions and medication education given. IV access removed intact with no s/s of infection. Follow up plan given to patient and she is agreeable to making her own follow up appts with her PCP and Dr. Garrido. All contact information for follow up appts given to patient.
== END 2017-03-02 10:45 | disposition home or self-care (01) | DRG 254 ==
LOC: SED 03:08 → OSC 12:45
PROVIDERS: ADMIT Surgery; ATTEND Family Medicine
DX: K43.0 Incisional hernia with obstruction, without gangrene (principal); Z68.45 Body mass index [BMI] 70 or greater, adult; F31.9 Bipolar disorder, unspecified; E66.01 Morbid (severe) obesity due to excess calories; Z87.891 Personal history of nicotine dependence

== ENCOUNTER 2017-03-10 08:29 | Emergency (ER) | payer OTHER ==
[~2017-03-10] VITALS: Ht 154.9 cm; Wt 175.0 kg
[~2017-03-10 08:29] MED LIST changes: +Acetaminophen PO; +IBUP400T22 PO; -LAM100 PO; +LAMO100T2 PO; +OXYC5TAB72 PO; +POLY17PO6 PO; -SODI354S PO
[2017-03-10 08:31] VITALS: BP 145/100; PULSE 105; RESP 20; O2SAT 96
--- NOTE | 2017-03-10 08:46 | ED.REPORT ---
HPI-Abd Pain F Under 40 Date of Service March 10, 2017 ED Provider: Tomi Burciaga MD 41 year old morbidly obese female with a history of hernia repair, x2 , and bilateral tubal ligation presents to the ER accompanied by her complaining of acute on chronic abdominal pain secondary to a known ventral hernia, worsening dramatically last night. Associated symptoms include severe nausea and vomiting, and chronic back pain. Patient denies fever, hematemesis, hematochezia, black/tarry stools, dysuria, and changes in bowel habits. Patient was seen here in the ER and admitted to the hospital on 02/26/2017 for a small bowel obstruction, discharged 03/02/2017. At that time she was seen by Dr. Garrido , Surgeon, and has a follow-up appointment later this week. During her hospital visit Dr. Garrido informed the patient that she would like her to get bariatric surgery prior to repairing her hernia. Nursing Notes Stated Complaint: ABDOMINAL PAIN/VOMITING Chief Complaint: Female Abdominal Pain Nursing Notes Reviewed: Yes Allergies: Coded Allergies: No Known Allergies (Verified Allergy, Unknown, 02/26/17) Scheduled Lamotrigine (Lamotrigine) 100 Mg Tablet 300 MG PO DAILY Scheduled PRN ([Acetaminophen]) 325 MG TABLET 650 MG PO Q6H PRN PRN For Mild Pain or Fever Ibuprofen (Ibuprofen) 400 Mg Tablet 400 MG PO Q6H PRN PRN For Pain Polyethylene Glycol 3350 (Miralax) 17 Gm Powd.pack 17 GM PO DAILY PRN PRN For Constipation General Time Seen by MD: 08:44 Chief Complaint Abdominal pain Hx Obtained From: Patient Arrived By: Walk-in Sudden in Onset?: No Onset Occurred: Yesterday Symptom Duration: Since onset Location: : Diffuse Quality: Painful Severity: Current: Moderate Severity: Maximum: Severe Associated with: Reports: Nausea, Vomiting, Denies: Constipation, Diarrhea, Dysuria, Fever, Hematochezia, Hematuria, Melena Pertinent Negative: Pt denies other symptoms Recent Healthcare: Recent doctor visit, Recent hospitalization Similar Sx Previous: Yes Past Medical History Past Medical History Asthma Seizures Hiatal Hernia Depression Hernia Was hospitalized at in the past for constipation, thought to be from bowel obstruction. This was never confirmed and the patient did not recieve any surgery. Reports: Depression, Morbid Obesity Past Surgical History hernia surgery. Reports: , Cholecystectomy, Inguinal hernia repair Family History Noncontributory Smoking History Former Smoker Social History Works at [employer] Alcohol Use: Denies alcohol use Drug Use: Denies drug use Other Social History: Good social support, Local resident Ambulatory Status Independent Review of Systems Constitutional: Denies: Chills, Fever Respiratory: Denies: Non-productive cough GI: Reports: Abdominal pain, Nausea, Vomiting, Denies: Bloody/tarry stool, Constipation, Diarrhea, Hematemesis, Hematochezia , Melena Female: Denies: Dysuria, Hematuria, Vaginal bleeding - abnl, Vaginal discharge Complete sys rev & neg: except as marked. Physical Exam Initial Vital Signs Vital Signs (First) Date Time Temp Pulse Resp B/P Pulse Ox O2 Delivery O2 Flow Rate FiO2 03/10/17 08:31 36.4 105 20 145/100 96 Room Air Initial VS: Reviewed Head / Eyes: Atraumatic, Normocephalic Neck: Supple, Non-tender, Full range of motion Extremities: Vascular intact, Neuro intact, No swelling, No tenderness Skin: Warm, Dry, No cyanosis Neurologic: Alert, Oriented, Nonfocal General/Constitutional: Awake, Alert Appearance / Presentation: Positive: Obese, morbidly Respiratory / Chest: Breath sounds NL, Breath sounds = bilat, No respiratory distress, No rales, No rhonchi, No wheezing Cardiovascular: Heart rate NL, Regular rhythm, Heart sounds NL, Peripheral circulation NL Abdomen: Soft, No guarding, No rebound Tenderness/Guarding/Rebound: Positive: Tender diffuse Abdominal hernia just lateral to umbilicus. Tender, non-reproducible. Back: Inspection NL, Non-tender, No CVA tenderness Interpretation & Diagnostics Lab Results Interpretation Result Diagram: 03/10/17 0900 03/10/17 0900 Test 03/10/17 09:00 03/10/17 10:35 White Blood Count 11.3th/mm3 (3.8-10.1) Red Blood Count 5.07mil/mm3 (3.90-5.20) Hemoglobin 13.1g/dL (12.0-15.6) Hematocrit 41.1% (35.0-46.0) Mean Corpuscular Volume 81.1fL (81-100) Mean Corpuscular Hemoglobin 25.8pg (27.0-35.0) Mean Corpuscular Hemoglobin Concent 31.9% (32.0-37.0) Red Cell Distribution Width 17.3% (12.3-15.4) Platelet Count 308bil/L (150-400) Neutrophils (%) (Auto) 69.8% (40-74) Lymphocytes (%) (Auto) 23.0% (14-46) Monocytes (%) (Auto) 5.9% (4-12) Eosinophils (%) (Auto) 0.6% (0-5) Basophils (%) (Auto) 0.4% (0-3) Sodium Level 136mEq/L (134-144) Potassium Level 4.0mEq/L (3.5-5.2) Chloride Level 97mEq/L (97-108) Carbon Dioxide Level 24mmol/L (18-29) Blood Urea Nitrogen 13mg/dL (6-20) Creatinine 0.61mg/dL (0.57-1.00) Estimat Glomerular Filtration Rate 156mL/min (>59) Glucose Level 120mg/dL (60-99) Lactic Acid Level 1.8mmol/L (0.4-2.0) Calcium Level 9.9mg/dL (8.5-10.1) Magnesium Level 2.0mg/dL (1.6-2.6) Total Bilirubin 0.4mg/dL (0.0-1.2) Aspartate Amino Transf (AST/SGOT) 12U/L (0-50) Alanine Aminotransferase (ALT/SGPT) 19U/L (0-32) Alkaline Phosphatase 75U/L (25-150) Total Protein 7.4g/dL (6.4-8.4) Albumin 4.4g/dL (3.4-5.0) Lipase 13U/L (13-60) Urine Color Straw (YELLOW) Urine Appearance Slightly cloudy Urine pH 5.5 (5.0-8.0) Urine Specific [place] 1.010 (1.003-1.035) Urine Protein Negativemg/dL (NEG,TRACE) Urine Glucose (UA) Negativemg/dL (NEGATIVE) Urine Ketones Negativemg/dL (NEGATIVE) Urine Occult Blood Moderate (NEGATIVE) Urine Nitrite Negative (NEGATIVE) Urine Bilirubin Negative (NEGATIVE) Urine Urobilinogen Normalmg/dL (NORMAL) Urine Leukocyte Esterase Moderate (NEGATIVE) Urine RBC 0-2/hpf (0-2) Urine WBC 6-10/hpf (0-5) Urine Epithelial Cells Occasional/hpf (NONE-MOD) Urine Crystals None seen (NONE SEEN) Urine Bacteria Moderate/hpf (NONE-FEW) Urine Hyaline Casts None/lpf (NONE) Urine Granular Casts None seen (NONE SEEN) Urine Waxy Casts None seen (NONE SEEN) Urine Red Blood Cell Casts None seen (NONE SEEN) Urine White Blood Cell Casts None seen (NONE SEEN) Urine Mucus Present (None Seen) Urine Trichomonas Present (NONE SEEN) Urine Yeast None (NONE SEEN) Urinalysis Comment None Urine Culture Reflexed Indicated CT Abd / Pelvis Interpretation IMPRESSION: 1. Findings consistent with small bowel obstruction. Obstructed loops of bowel have increased in diameter compared to 02/26/17. Transition point is within the ventral hernia. 2. Large ventral hernia containing multiple loops of small bowel and mesentery. There is increased inflammation within the hernia adjacent to several loops of small bowel and developing small bowel strangulation cannot be excluded. 3. No free fluid or air. 4. Splenomegaly with numerous, ill-defined, hypoattenuating nodules. Finding is nonspecific but differential includes infectious etiologies, inflammatory etiologies, metabolic processes and neoplastic processes such as leukemia and lymphoma. 5. Findings telephoned to Dr. Tomi Burciaga on 03/10/17 at 1107 hrs. Dictated by: Leela Munoz MD, PhD on 03/10/2017 at 11:02 Approved by: Leela Munoz MD, PhD on 03/10/2017 at 11:13 Study type: Abdominal CT IV contrast, Abdom CT oral contrast Interpretation / Wet Read by: Interpret - Radiologist Re-Eval/Medical Decision Med Decision/Clinical Course Med Decision/Clinical Course: 41-year-old female history of morbid obesity BMI 73 and ventral hernia presenting with abdominal pain nausea vomiting. Complaining of pain over hernia. Last bowel movement was this morning. Passing gas. CT shows small bowel obstruction and ventral hernia. No clear strangulation. Vital signs stable. Unable to reduce. General surgeon Dr. Levy, was consulted and recommended transfer to [facility] for higher level of care given her BMI. She had no vomiting here. Mild leukocytosis 11,000. Her lactate was normal. She was given 2 L normal saline and pain control. Transferred via ALS to [facility] accepting Dr. Rj Gomez. Source of Hx: Old records Re-Evaluation/Progress #1: Time of Eval: 08:59 Re-Evaluation/Progress Note: Completed physical examination. Re-Evaluation/Progress #2: Time of Eval: 11:07 Re-Evaluation/Progress Note: Patient's abdominal pain is slightly improved. She remains nauseated. Updated her on the plan of care. Re-Evaluation/Progress #3: Time of Eval: 13:03 Re-Evaluation/Progress Note: Discussed lab and imaging results and need for transfer. Patient is amenable to the plan. All other questions addressed. Consultation #1: Referral / Consult Name: Hudson Levy MD Consulted With: Surgeon Call Returned at: 11:21 Consultation #2: Call Returned at: 11:31 Note: Discussed patient case with transfer center at [facility]. Consultation #3: Call Returned at: 12:53 Note: Discussed patient case with Dr. Anibal Gomez, Surgeon at [facility]. Counseled Regarding: Diagnosis, Lab results, Need for admission Discharge & Departure Primary Impression: Incarcerated hernia Disposition: Transfer, Acute Care Facility Receiving Hospital: [facility] Transfer Accepted: Yes Transfer Accepted at: 12:56 Transfer Reason: Higher level of care Spoke with: Specialty physician (Dr. Gomez, Surgeon) Patient Status: Stable, Stable for transfer Patient Informed: Yes Discharge Condition All VS Reviewed: Yes Condition: Stable Referrals: Ila Goss MD (PCP) Kristan Garrido MD Attestation Portions of this note were transcribed by Mansoor Ulloa. I, Dr. Burciaga, personally performed the history, physical exam and medical decision-making; I reviewed and confirmed the accuracy of the information in the transcribed note. Signed by: Adrian Duke, 03/10/2017 at 13:03 copies to: Kristan Garrido MD; Ila Goss MD, Ben M MD March 10, 2017 08:46 MANSOOR ULLOA March 10, 2017 08:53
[2017-03-10] MEDS ORDERED: 0.9% Sodium Chloride 1,000 ML IV ONE (08:52)
[2017-03-10] MEDS ORDERED: Iohexol 300 mg/mL 30 mL Inj PO ONE (08:55)
[2017-03-10 09:10] LABS: BASOPHILS % (AUTO) 0.4 % (0-3); EOSINOPHILS % (AUTO) 0.6 % (0-5); MONOCYTES % (AUTO) 5.9 % (4-12); Mean Corpuscular Hemoglobin 25.8 pg (27.0-35.0); Mean Corpuscular Volume 81.1 fL (81-100); NEUTROPHILS % (AUTO) 69.8 % (40-74); Platelet Count 308 bil/L (150-400)
[2017-03-10] MEDS: Ondansetron 2 mg/mL 2 mL Inj IVPUSH PRN ×3 (09:10→12:25)
[2017-03-10 11:01] LABS: APPEARANCE,URINE SLIGHTLY CLOUDY (CLEAR,HAZY); COLOR,URINE STRAW (YELLOW); OCCULT BLOOD,URINE MODERATE (NEGATIVE); PH,URINE 5.5 (5.0-8.0); UROBILINOGEN,URINE NORMAL (NORMAL)
[2017-03-10] MEDS: HYDROmorphone 0.5 mg/0.5 mL iSecure Syringe IVPUSH PRN ×3 (11:04→13:23)
--- NOTE | 2017-03-10 11:14 | DRSVH ---
PROCEDURE: CT ABDOMEN AND PELVIS WITH CONTRAST ([id number]) INDICATIONS: hernia pain h/o sbo, vomiting TECHNIQUE: After the administration of oral and intravenous contrast, 5 mm thick sections acquired from the diap hragms to the symphysis. 5 mm thick coronal and sagittal reformats were performed. For radiation do se reduction, the following was used: automated exposure control, adjustment of mA and/or kV accordi ng to patient size. COMPARISON: [facility], CT, CT ABD PELVIS W CON, 02/26/2017, 8:42. FINDINGS: Image quality: Limited by patient body habitus. ABDOMEN: Lung bases: Lung bases are clear. Heart size is normal. Solid organs: The spleen is enlarged and contains multiple, ill-defined, hypoattenuating nodules. Leticia er is stable in appearance compared to prior examination with Britton's lobe again noted. Gallbladder is surgically absent. Biliary system is non-dilated. Pancreas enhances normally. No adrenal nodule s. Kidneys are normal in size and enhancement, without hydronephrosis. Peritoneum and bowel: Multiple dilated loops of small bowel are again noted. Loops of small bowel hav e increased in diameter measuring up to 5 cm in diameter. Transition zone to normal caliber small bow el that level a large ventral hernia which contains multiple loops of small bowel. No free fluid or a ir. The appendix is normal. Nodes and vessels: No retroperitoneal or mesenteric adenopathy. Aorta and inferior vena cava are no rmal in caliber. Miscellaneous: No ventral hernias. PELVIS: Genitourinary: Bladder wall thickness is normal. Miscellaneous: No inguinal hernias or adenopathy. Bones: No suspicious bony lesions. No vertebral body compression fractures. IMPRESSION: 1. Findings consistent with small bowel obstruction. Obstructed loops of bowel have increased in diam eter compared to 02/26/17. Transition point is within the ventral hernia. 2. Large ventral hernia containing multiple loops of small bowel and mesentery. There is increased in flammation within the hernia adjacent to several loops of small bowel and developing small bowel stra ngulation cannot be excluded. 3. No free fluid or air. 4. Splenomegaly with numerous, ill-defined, hypoattenuating nodules. Finding is nonspecific but diffe rential includes infectious etiologies, inflammatory etiologies, metabolic processes and neoplastic p rocesses such as leukemia and lymphoma. 5. Findings telephoned to Dr. Tomi Burciaga on 03/10/17 at 1107 hrs. Dictated by: Leela Munoz MD, PhD on 03/10/2017 at 11:02 Approved by: Leela Munoz MD, PhD on 03/10/2017 at 11:13
[2017-03-10 13:27] VITALS: BP 119/74; PULSE 97; RESP 16; O2SAT 100
== END 2017-03-10 13:25 | disposition short-term general hospital (02) ==
LOC: SED 08:29
DX: K43.6 Other and unspecified ventral hernia with obstruction, without gangrene (principal); J45.909 Unspecified asthma, uncomplicated; Z87.891 Personal history of nicotine dependence
CPT/HCPCS: 36415; 74177; 80053; 81000; 81025; 83605; 83690; 83735; 85025; 87086; 87088; 96361; 96374; 96375; 96376; 99285; J1170; J2270; J2405; J7030; Q9967